=== PATIENT | male | born 1965 | race Caucasian/White ===

== ENCOUNTER 2020-07-09 13:25 | Outpatient (REF) | payer MEDICARE, OTHER, SELFPAY | END 2020-07-09 13:26 | disposition home or self-care (01) | LOC: HO.LAB 13:25 | PROVIDERS: Visit Provider Internal Medicine | DX: Z20.828 Contact with and (suspected) exposure to other viral communicable diseases (principal) | CPT/HCPCS: C9803; U0003 ==

== ENCOUNTER → 2020-10-12 13:37 | Outpatient (BNVA) | payer MEDICARE, SELFPAY | PROVIDERS: PCP Internal Medicine; Visit Provider Physician Assistant | CPT/HCPCS: Q3014 ==

== ENCOUNTER 2020-11-06 11:57 | Outpatient (REF) | payer MEDICARE, SELFPAY ==
[2020-11-06 13:01] LABS: Hemoglobin 13.7 g/dl (14.0-18.0)
[2020-11-06 13:04] LABS: Basophils Absolute Auto 0.1 X10*3/uL (0.0-0.2); Eosinophils Absolute Auto 0.1 X10*3/uL (0.0-0.4); Eosinophils Percent Auto 1.8 % (0-4); Hematocrit 40.8 % (42-52); Imm Gran Abs Auto 0.02 X10*3/uL (0.00-0.03); Imm Gran Pct Auto 0.3 % (0.0-0.4); Lymphocytes Absolute Auto 1.3 X10*3/uL (1.2-4.9); Lymphocytes Percent Auto 20.5 % (20-40); Mean Corpuscular HGB Conc 33.6 g/dl (31.0-36.0); Mean Corpuscular Hemoglobin 31.4 pg (27.0-33.0); Mean Corpuscular Volume 93.6 fL (80-98); Mean Platelet Volume 11.3 fL (9.4-12.4); Monocytes Absolute Auto 0.7 X10*3/uL (0.1-1.2); Monocytes Percent Auto 11.7 % (2-11); Neutrophils Percent Auto 64.7 % (45-73); Platelet Count 129 X10*3/uL (160-400); Red Blood Count 4.36 X10*6/uL (4.60-5.80); Red Cell Distribution Width 13.7 % (11.0-16.0); White Blood Count 6.2 X10*3/uL (4.8-10.8)
[2020-11-06 13:17] LABS: MANUAL DIFF FLAG NO
[2020-11-06 13:34] LABS: Alanine Aminotransferase 60 U/L (0-40); Albumin Level 3.8 g/dL (3.5-5.0); Alkaline Phosphatase 82 U/L (39-117); Anion Gap 14 (12-20); Aspartate Amino Transferase 59 U/L (5-37); Bilirubin Total 2.7 mg/dL (0.0-1.0); Blood Urea Nitrogen 9 mg/dL (9-16); Calcium 8.7 mg/dL (8.4-10.2); Carbon Dioxide 20 mmol/L (22-29); Chloride 106 mmol/L (96-108); Cholesterol 161 mg/dL; Estimated Glomerular Filt Rate > 60; Glucose Random 137 mg/dL (60-115); HDL Cholesterol 52 mg/dL; LDL Cholesterol Calculated 97 mg/dl; Potassium 3.8 mmol/L (3.3-5.1); Sodium 136 mmol/L (135-145); Total Protein 7.5 g/dL (6.5-8.0); Triglycerides 63 mg/dL
== END 2020-11-06 11:58 | disposition home or self-care (01) ==
LOC: HO.LAB 11:57
PROVIDERS: Absent Provider Nurse Practitioner Family; PCP Internal Medicine; Visit Provider Physician Assistant
DX: Z00.00 Encounter for general adult medical examination without abnormal findings (principal); R10.11 Right upper quadrant pain; R74.01 Elevation of levels of liver transaminase levels; M54.5 Low back pain
CPT/HCPCS: 36415; 80053; 80061; 84153; 85025

== ENCOUNTER 2020-11-11 12:35 | Outpatient (REF) | payer MEDICARE, SELFPAY ==
--- NOTE | ~2020-11-11 | US_ITS ---
EXAMINATION: US ABDOMEN COMPLETE CLINICAL INFORMATION: Unspecified cirrhosis of liver. COMPARISON: Ultrasound abdomen complete 04/19/2018. MRI abdomen 12/14/2016. TECHNIQUE: Real-time imaging of the abdominal viscera. Technically limited study secondary to body habitus. FINDINGS: PANCREAS: Obscured by bowel gas. ABDOMINAL AORTA: Proximal aorta obscured by bowel gas. Mid and distal aorta appear unremarkable. INFERIOR VENA CAVA: Unremarkable. LIVER: There is diffuse increased echogenicity. Nodular contour. No focal hepatic lesion. There is no intrahepatic biliary duct dilatation seen. Hepatofugal portal venous flow. GALLBLADDER: Gallstones present. No evidence of gallbladder wall thickening or pericholecystic fluid. COMMON BILE DUCT: Not visualized due to bowel gas. RIGHT KIDNEY: Normal. No hydronephrosis. No renal calculi or focal parenchymal lesions. The kidney measures 11.9 cm in maximum dimension. LEFT KIDNEY: Normal. No hydronephrosis. No renal calculi or focal parenchymal lesions. The kidney measures 13.9 cm in maximum dimension. SPLEEN: Enlarged The spleen measures 13.4 cm in maximum dimension. FREE FLUID: None. US/US abdomen complete IMPRESSION: 1. Findings consistent with cirrhosis. No focal lesion seen. No biliary duct dilatation. Redemonstrated is hepatofugal portal venous flow. 2. Cholelithiasis. No sonographic findings to suggest acute cholecystitis. 3. Splenomegaly.
== END 2020-11-11 12:36 | disposition home or self-care (01) ==
LOC: HO.US 12:35
PROVIDERS: Visit Provider Physician Assistant
DX: K74.60 Unspecified cirrhosis of liver (principal)
CPT/HCPCS: 76700

== ENCOUNTER → 2021-01-12 07:28 | Outpatient (BNVA) | payer MEDICARE, SELFPAY | PROVIDERS: Visit Provider Physician Assistant | CPT/HCPCS: Q3014 ==

== ENCOUNTER 2021-02-02 09:43 | Outpatient (REF) | payer MEDICARE, SELFPAY ==
[2021-02-02 10:53] LABS: MANUAL DIFF FLAG SCAN; Mean Corpuscular Hemoglobin 31.6 pg (27.0-33.0); PLT CLUMP 1; SCAN SMEAR FLAG 1
[2021-02-02 10:55] LABS: Basophils Absolute Auto 0.1 X10*3/uL (0.0-0.2); Basophils Percent Auto 1.5 % (0-2); Eosinophils Absolute Auto 0.2 X10*3/uL (0.0-0.4); Eosinophils Percent Auto 4.7 % (0-4); Hematocrit 39.7 % (42-52); Hemoglobin 13.4 g/dl (14.0-18.0); Lymphocytes Absolute Auto 1.2 X10*3/uL (1.2-4.9); Lymphocytes Percent Auto 34.7 % (20-40); Mean Corpuscular HGB Conc 33.8 g/dl (31.0-36.0); Mean Corpuscular Volume 93.6 fL (80-98); Mean Platelet Volume 11.1 fL (9.4-12.4); Monocytes Absolute Auto 0.5 X10*3/uL (0.1-1.2); Monocytes Percent Auto 14.5 % (2-11); Neutrophils Absolute Auto 1.5 X10*3/uL (2.0-8.3); Neutrophils Percent Auto 44.6 % (45-73); Platelet Count 106 X10*3/uL (160-400); Red Blood Count 4.24 X10*6/uL (4.60-5.80); Red Cell Distribution Width 13.1 % (11.0-16.0); White Blood Count 3.4 X10*3/uL (4.8-10.8)
[2021-02-02 11:08] LABS: SLIDE REVIEW VERIFIED
[2021-02-02 11:24] LABS: Alanine Aminotransferase 57 U/L (0-40); Albumin Level 3.6 g/dL (3.5-5.0); Alkaline Phosphatase 85 U/L (39-117); Anion Gap 11 (12-20); Aspartate Amino Transferase 64 U/L (5-37); Bilirubin Total 2.2 mg/dL (0.0-1.0); Blood Urea Nitrogen 8 mg/dL (9-16); Calcium 8.7 mg/dL (8.4-10.2); Carbon Dioxide 25 mmol/L (22-29); Chloride 107 mmol/L (96-108); Estimated Glomerular Filt Rate > 60; Glucose Fasting 99 mg/dL (60-99); Potassium 3.7 mmol/L (3.3-5.1); Sodium 139 mmol/L (135-145); Total Protein 6.7 g/dL (6.5-8.0)
== END 2021-02-02 09:44 | disposition home or self-care (01) ==
LOC: HO.LAB 09:43
PROVIDERS: Nurse Practitioner Family; PCP Internal Medicine; Visit Provider Internal Medicine
DX: R73.02 Impaired glucose tolerance (oral) (principal); M54.5 Low back pain
CPT/HCPCS: 36415; 80053; 85025

== ENCOUNTER 2021-02-04 13:11 | Day surgery (SDC) | payer MEDICARE, OTHER, SELFPAY ==
[2021-02-04 13:52] VITALS: BMI 32.0
--- NOTE | 2021-02-04 13:55 | MHC.SHP ---
Pre-Procedural Eval Section A Date of Service: 02/04/21 Section B Chief Complaint: reflux disease Details of Present Illness: hx of cirrhosis, variceal screening Relevant Family History (Specify if Yes): No Relevant Social History: None (ex heavy drinker) Present Medications: see Short Stay Collaborative assessment Medical History: Significant History (Acid reflux Cirrhosis of liver Esophageal varices Impaired glucose tolerance Left sided sciatica Lower back pain) History of Previous Operations: Relevant previous surgery/procedure and date(s) (History of esophagogastroduodenoscopy (EGD) History of hand surgery History of left knee surgery History of myringotomy History of right knee surgery Hx of colonoscopy) Allergies: Allergies Allergy/AdvReac Type Severity Reaction Status Date / Time Penicillins [PENICILLINS] Allergy Severe HIVES Verified 02/04/21 13:49 trazodone Allergy Unknown pruritus Verified 02/04/21 13:49 Review of Systems Sugical H&P ROS: Negative: Constitution, Cardiovascular, Respiratory, Neurological, Psychiatric, Hem-Onc, Allergic/Immunologic, Gastrointestinal, Genitourinary, Musculoskeletal, Integumentary, Endocrine and Eyes/Ears/Nose/Throat Exam Surgical H&P Exam: Normal: HEENT, Normal: Heart, Normal: Lungs, Normal: Extremities, Normal: Abdomen, Normal: Skin and Normal: Neurological Plan Diagnosis/Plan: Unchanged I have reviewed the history and physical and performed a pertinent physical examination on my patient. No changes have occurred unless specified.
[2021-02-04 14:00] VITALS: BP 119/63; PULSE 67; RESP 20; TEMP 36.9; O2SAT 97
--- NOTE | 2021-02-04 14:17 | HO.ANESPROP2 ---
[facility] Active Problems Active Problems: All Active Problems (Updated 01/12/21 @ 08:11 by Susana Grey PA-C) Acid reflux (Acute) Impaired glucose tolerance (Acute) Left sided sciatica (Acute) Cirrhosis of liver (Acute) Esophageal varices (Acute) Nausea & vomiting (Acute) Screening for colon cancer (Acute) Physical exam (Acute) Lower back pain (Acute) Past Medical History Medical History Acid reflux Cirrhosis of liver Esophageal varices Impaired glucose tolerance Left sided sciatica Lower back pain Physical exam Screening for colon cancer Family History Family History Father Cancer Mother Arthritis Sister In good health Daughter In good health Other History of hand surgery Surgical History Surgical History History of esophagogastroduodenoscopy (EGD) History of hand surgery History of left knee surgery History of myringotomy History of right knee surgery Hx of colonoscopy Social History Social History Household Members: Family Household Members Other:: step mother Alcohol intake: former Patient Tobacco Use Status: Never used Tobacco Use of substances other than those prescribed or required for medical reasons: No Are you DNR?: No Advance Directives: No Advance Directives Information Provided: Yes Current occupational status: disabled Meds Allergies Allergy/AdvReac Type Severity Reaction Status Date / Time Penicillins [PENICILLINS] Allergy Severe HIVES Verified 02/04/21 13:49 trazodone Allergy Unknown pruritus Verified 02/04/21 13:49 Home Medications Medication Instructions Recorded Confirmed Last Taken Type No Known Home Meds 01/12/21 Unknown History Exam Exam Date and Time: February 04, 2021 1417 Height,Weight and Vital Signs: Height 5 ft 9 in Weight 216 lb 12.8 oz Last Vital Signs Temp 98.4 F 02/04/21 14:00 Pulse 67 02/04/21 14:00 Resp 20 02/04/21 14:00 BP 119/63 02/04/21 14:00 Pulse Ox 97 02/04/21 14:00 Airway Mallampati Class: II TM Dist: >3cm Neck ROM: Full Loose/Missing/Broken Teeth: No Heart: RRR Assessment and Plan Assessment Anesthesia Assessment: Anesthesia Plan Discussed and Chart Reviewed Final Anesthetic Review NPO: Yes ASA Class: II Final Preanesthetic Review: No Changes in Pt Med Stat, Meds/Allgs Chart Reviewed, Consent Obtained/Reviewed and Anes Risks/Benef Reviewed Patient Risk: Low Procedure Risk: Low Anesthetic Plan Anesthetic Plan: MAC: Disposition: Standard PACU
--- NOTE | 2021-02-04 14:39 | PM.OP ---
Brief Operative Note Date of Service: 02/04/21 Pre-op diagnosis: GERD, hx of cirrhosis, variceal screening Post-op diagnosis: same Procedure: see op note Surgeon: Katya Stallings MD Anesthesia: MAC Was an Enlisted Advisor used for this Procedure?: No Estimated blood loss (mL): 0 Condition: stable Disposition: PACU
--- NOTE | 2021-02-04 14:39 | W.PM.OPN ---
Operative Note Operative Note Date of Service: 02/04/21 Narrative: Procedure Description: EGD FLEXIBLE TRANSORAL UPPER GASTROINTESTINAL ENDOSCOPY UPPER ENDOSCOPY Consent: Indications for the procedure and potential complications of bleeding, perforation, reaction to medications and missed diagnosis were discussed with the patient and informed consent was obtained. Instrument: Olympus GIF H 190 J mid size upper endoscope Monitoring: Vital signs and clinical assessment, continuous EKG monitoring, Pulse oximetry, Carbon Dioxide monitoring and blood pressure monitoring were done throughout the procedure. Procedure: The patient was placed in the left lateral decubitis position and pre-procedure medications were administered and a bite block was placed. The endoscope was inserted into the mouth and advanced under direct vision to the third part of duodenum. A careful inspection was made as the upper endoscope was withdrawn including a retroflexed examination of the proximal stomach; Findings and interventions are described below. Findings: Larynx:normal Esophagus: GE junction at 40 cm, diaphragm hiatus at 40 cm, suspected short segment barretts, bx taken. X1 flat varix column seen without any high risk stigmata Stomach: Patchy gastric erythema with small gastric ulcer 6-8 mm at pylorus biopsy taken. There was also an erosion close by. Biopsies were obtained. Grade 2 flap valve on retroflexed examination of the cardia. There appeared to be reduced gastric motility. Duodenum: Normal bulb and descending duodenum, Intervention: Biopsies as noted above Impression/Findings: possible barretts esophgeal varix, gastric ulcer and erosion PLAN: commence PPi if not taking if h pylori pos then treat rept EGD 2-3 yrs or earlier if clinically indicated
[2021-02-04 14:57] VITALS: BP 105/52; PULSE 68; RESP 18; TEMP 36.6; O2SAT 98
[2021-02-04 15:12] VITALS: BP 123/69; PULSE 63; RESP 16; TEMP 36.6; O2SAT 98
[2021-02-04 15:27] VITALS: BP 132/72; PULSE 67; RESP 16; TEMP 36.6; O2SAT 98
== END 2021-02-04 16:02 | disposition home or self-care (01) ==
PROVIDERS: PCP Internal Medicine; Visit Provider Internal Medicine Gastroenterology
PROC: 0DJ08ZZ Inspection of Upper Intestinal Tract, Via Natural or Artificial Opening Endoscopic (ICD-10-PCS; CPT 43235; principal; 2021-02-04 14:50)
DX: K21.9 Gastro-esophageal reflux disease without esophagitis (principal); K25.9 Gastric ulcer, unspecified as acute or chronic, without hemorrhage or perforation; I85.00 Esophageal varices without bleeding; K44.9 Diaphragmatic hernia without obstruction or gangrene; K74.60 Unspecified cirrhosis of liver; R73.02 Impaired glucose tolerance (oral); Z79.899 Other long term (current) drug therapy; Z88.0 Allergy status to penicillin; Z88.8 Allergy status to other drugs, medicaments and biological substances
CPT/HCPCS: 43239; 88305; 88342; J2405; J3010

== ENCOUNTER → 2021-02-09 12:50 | Outpatient (BNVA) | payer MEDICARE, SELFPAY | PROVIDERS: PCP Internal Medicine; Visit Provider Physician Assistant | DX: K74.60 Unspecified cirrhosis of liver (principal); I85.00 Esophageal varices without bleeding | CPT/HCPCS: Q3014 ==

== ENCOUNTER 2021-03-08 08:23 | Outpatient (REF) | payer MEDICARE, SELFPAY ==
--- NOTE | ~2021-03-08 | XR_ITS ---
EXAMINATION: XR FOOT, RIGHT CLINICAL INFORMATION: Localized swelling, mass, COMPARISON: Previous x-ray most recent April 2019 TECHNIQUE: AP, lateral, and oblique views of the right foot. FINDINGS: Bone alignment is normal. No fracture or dislocation is seen. There is severe arthritis at the first MTP joint with joint space narrowing and osteophyte formation. This is unchanged. The joint spaces are otherwise normal. There is soft tissue swelling adjacent to the medial first MTP joint. There are calcaneal spurs. XR/XR foot RT min 3V IMPRESSION: Severe arthritis at the first MTP joint.
== END 2021-03-08 08:24 | disposition home or self-care (01) ==
LOC: HO.US 08:23
PROVIDERS: PCP Internal Medicine; Visit Provider Physician Assistant
DX: K74.60 Unspecified cirrhosis of liver (principal)
CPT/HCPCS: 73630

== ENCOUNTER 2022-03-29 07:22 | Outpatient (REF) | payer OTHER, SELFPAY | END 2022-03-29 07:23 | disposition home or self-care (01) | LOC: HO.HOSX 07:22 | PROVIDERS: Visit Provider Physician Assistant | DX: Z13.89 Encounter for screening for other disorder (principal) ==

== ENCOUNTER 2023-01-18 11:48 | Outpatient (REF) | payer OTHER, SELFPAY ==
[2023-01-18 11:59] LABS: MANUAL DIFF FLAG NO
[2023-01-18 13:12] LABS: Basophils Absolute Auto 0.1 X10*3/uL (0.0-0.2); Basophils Percent Auto 1.9 % (0-2); Eosinophils Absolute Auto 0.2 X10*3/uL (0.0-0.4); Eosinophils Percent Auto 4.1 % (0-4); Hematocrit 41.5 % (42.0-52.0); Imm Gran Abs Auto 0.01 X10*3/uL (0.00-0.03); Imm Gran Pct Auto 0.3 % (0.0-0.4); Lymphocytes Absolute Auto 1.3 X10*3/uL (1.2-4.9); Lymphocytes Percent Auto 36.5 % (20-40); Mean Corpuscular HGB Conc 33.7 g/dl (31.0-36.0); Mean Corpuscular Hemoglobin 32.1 pg (27.0-33.0); Mean Corpuscular Volume 95.2 fL (80.0-98.0); Mean Platelet Volume 11.2 fL (9.4-12.4); Monocytes Absolute Auto 0.4 X10*3/uL (0.1-1.2); Monocytes Percent Auto 10.2 % (2-11); Neutrophils Absolute Auto 1.7 x10*3/uL (2.0-8.3); Platelet Count 114 X10*3/uL (160-400); Red Blood Count 4.36 X10*6/uL (4.60-5.80); Red Cell Distribution Width 13.3 % (11.0-16.0); White Blood Count 3.6 X10*3/uL (4.8-10.8)
[2023-01-18 13:40] LABS: Alanine Aminotransferase 38 U/L (0-40); Albumin Level 3.3 g/dL (3.5-5.0); Alkaline Phosphatase 112 U/L (39-117); Anion Gap 16 (12-20); Aspartate Amino Transferase 63 U/L (5-37); Blood Urea Nitrogen 7 mg/dL (9-16); Calcium 8.6 mg/dL (8.4-10.2); Carbon Dioxide 22 mmol/L (22-29); Chloride 106 mmol/L (96-108); Cholesterol 141 mg/dL; Estimated Glomerular Filt Rate > 60; Glucose Fasting 86 mg/dL (60-99); HDL Cholesterol 39 mg/dL; LDL Cholesterol Calculated 86 mg/dl; Potassium 3.9 mmol/L (3.3-5.1); Sodium 140 mmol/L (135-145); Total Protein 7.3 g/dL (6.5-8.0); Triglycerides 80 mg/dL
== END 2023-01-18 11:49 | disposition home or self-care (01) ==
LOC: HO.LAB 11:48
PROVIDERS: PCP Internal Medicine; Visit Provider Internal Medicine
DX: I85.00 Esophageal varices without bleeding (principal); D64.9 Anemia, unspecified; R73.02 Impaired glucose tolerance (oral); E78.5 Hyperlipidemia, unspecified
CPT/HCPCS: 36415; 80053; 80061; 85025

== ENCOUNTER → 2023-02-15 08:40 | Outpatient (BNV) | payer OTHER, SELFPAY | PROVIDERS: PCP Internal Medicine; Visit Provider Internal Medicine | DX: D46.A Refractory cytopenia with multilineage dysplasia (principal) | CPT/HCPCS: 99204 ==

== ENCOUNTER 2023-03-10 15:34 | Outpatient (AMB) | payer OTHER, SELFPAY ==
[2023-03-10 15:47] VITALS: BP 123/65; PULSE 97; BMI 40.2
--- NOTE | 2023-03-10 15:47 | A.OFFVIS_ITS ---
Intake Vital Signs 03/10/23 15:47 Height 5 ft 4 in Weight 234 lb BMI 40.2 BP 123/65 Blood Pressure Location Lt brachial Position Sitting Pulse 97 Intake Visit Reasons: Unspecified Cirrhosis of liver Intake Note: Patient presents to in office visit today for cirrhosis of liver. CC: Patient c/o LLQ abdominal pain, and some Oracle Database Administrator Required: No Accompanied by: Self / Same As Patient Allergies Penicillins [PENICILLINS] Allergy (Severe, Verified 03/10/23 15:51) HIVES trazodone Allergy (Intermediate, Verified 03/10/23 15:51) pruritus HPI HPI Comments History of Present Illness Details 57y.o M with PMH of cirrhosis with CSPH (varices, PHG on EGD 2020), obesity, osteoarthritis. Has had known etOH cirrhosis since at least 2012 when he presented with ascites. At that time was drinking a combination of bourbon and scotch at least half a bottle of each/day. Cut down on hard liquor but continues to drink beer - last drink was this morning. No current or previous hx of IVDU - hepatitis serology negative from last month. Fam hx pertinent for etOH use disorder in grandmother. No hx of iron overload or early pulm issues in family. Last EGD 2020 (Dr Stallings): Small esophageal varix, gastric varix. PHG Last colo 2016 (Dr Gunter): Fair prep. Recommendation was made for repeat in 5 years. Last abd imaging 11/2020: No focal liver lesion. Hepatofugal flow. No ascites. PFSH Medical History Acid reflux Cirrhosis of liver Esophageal varices Impaired glucose tolerance Left sided sciatica Lower back pain Mass of right foot Physical exam Screening for colon cancer Surgical History History of esophagogastroduodenoscopy (EGD) History of hand surgery History of left knee surgery History of myringotomy History of right knee surgery Hx of colonoscopy Family History Father Cancer Mother Arthritis Cancer Sister In good health Daughter In good health Family/Other Substance use disorder Other History of hand surgery Social History (Updated 02/15/23 @ 08:50 by Carol Freeman) Household Members: Family Household Members Other:: step mother Housing: House Alcohol intake: former Patient Tobacco Use Status: Never used Tobacco e-Cigarette/Vaping Use: Never Used Second Hand Smoke Exposure: No service: Yes ([employer]) Current occupational status: disabled Cognitive needs: No Hearing needs: No Vision needs: Yes Review of Systems Const All systems reviewed & are unremarkable except as noted in HPI and below Physical Exam Vital Signs: BMI result Body Mass Index 40.2 Gen Appear: NAD, with obesity HEENT: Mild scleral icterus, no bitemporal wasting noted Chest: CTA CVS: Regular S1/S2 no murmurs Abd: soft, nontender, nondistended, no shifting dullness to percussion, bowel sounds active Ext: No peripheral edema bilaterally Neuro: A/Ox3, no asterixis Assessment & Plan Assessment & Plan (1) Cirrhosis of liver: Code(s): K74.60 - Unspecified cirrhosis of liver Qualifiers: Hepatic cirrhosis type: alcoholic cirrhosis Ascites presence: without ascites Qualified Code(s): K70.30 - Alcoholic cirrhosis of liver without ascites (2) Esophageal varices: Code(s): I85.00 - Esophageal varices without bleeding Plan Likely from etOH use - continues to drink still. Will order work up to r/o other etiologies. Chronic hep negative. He is also overdue on US for HCC screening as well as EGD for variceal screening. EGD can be booked at the same time as colo. However this will be discussed in detail at next visit after reviewing his updated MELD labs and US Abd. Follow up in 6 weeks. Orders: Orders Comprehensive Met. Panel Today K74.60 - Unspecified cirrhosis of liver Ferritin Today K74.60 - Unspecified cirrhosis of liver IRON PROFILE Today K74.60 - Unspecified cirrhosis of liver Prothrombin Time INR Today K74.60 - Unspecified cirrhosis of liver Complete Blood Count no Diff Today K74.60 - Unspecified cirrhosis of liver Liver Kidney Microsomal Ab Today K74.60 - Unspecified cirrhosis of liver Phosphatidylethanol, Blood Today K74.60 - Unspecified cirrhosis of liver Ceruloplasmin Today K74.60 - Unspecified cirrhosis of liver Smooth Muscle Antibody Today K74.60 - Unspecified cirrhosis of liver US abdomen complete Today K74.60 - Unspecified cirrhosis of liver Quality Reporting (2019) Adult ([facility] 138/09/28/68) Smoking risk assessment performed?: Yes Patient Tobacco Use Status: Never used Tobacco Coding Level of Care Code Est Pt Level 5 (65464) Diagnoses Cirrhosis of liver K70.30 Hepatic cirrhosis type: alcoholic cirrhosis Ascites presence: without ascites Esophageal varices I85.00
== END 2023-03-10 16:10 | disposition home or self-care (01) ==
PROVIDERS: PCP Internal Medicine; Visit Provider Internal Medicine
DX: K70.30 Alcoholic cirrhosis of liver without ascites (principal); I85.00 Esophageal varices without bleeding
CPT/HCPCS: 99214

== ENCOUNTER 2023-03-10 15:34 | Outpatient (REF) | payer OTHER, SELFPAY ==
[2023-03-10 17:51] LABS: Prothrombin Time 11.8 SEC (11.1-13.3)
[2023-03-10 18:07] LABS: Hematocrit 37.7 % (42.0-52.0); Hemoglobin 12.7 g/dl (14.0-18.0); Mean Corpuscular HGB Conc 33.7 g/dl (31.0-36.0); Mean Corpuscular Hemoglobin 32.1 pg (27.0-33.0); Mean Corpuscular Volume 95.2 fL (80.0-98.0); Platelet Count 125 X10*3/uL (160-400); Red Blood Count 3.96 X10*6/uL (4.60-5.80); Red Cell Distribution Width 13.6 % (11.0-16.0); White Blood Count 4.3 X10*3/uL (4.8-10.8)
[2023-03-10 18:27] LABS: Alanine Aminotransferase 37 U/L (0-40); Albumin Level 3.3 g/dL (3.5-5.0); Alkaline Phosphatase 142 U/L (39-117); Anion Gap 14 (12-20); Aspartate Amino Transferase 53 U/L (5-37); Bilirubin Total 0.7 mg/dL (0.0-1.0); Blood Urea Nitrogen 9 mg/dL (9-16); Calcium 8.6 mg/dL (8.4-10.2); Carbon Dioxide 23 mmol/L (22-29); Chloride 111 mmol/L (96-108); Estimated Glomerular Filt Rate > 60; Glucose Random 119 mg/dL (60-115); Iron 88 mcg/dL (45-160); Percent Iron Saturation 38 % (15-50); Potassium 3.7 mmol/L (3.3-5.1); Sodium 144 mmol/L (135-145); Total Iron Binding Capacity 231 mcg/dL (228-428); Total Protein 6.8 g/dL (6.5-8.0); Unsaturated Iron Binding 143 ug/dL
[2023-03-10 18:41] LABS: Ferritin 578 ng/mL (20-250)
[2023-03-13 18:54] LABS: Ceruloplasmin 21 mg/dL (18-36)
[2023-03-16 14:08] LABS: Smooth Muscle Antibody <20 U (<20)
[2023-03-19 13:47] LABS: Liver Kidney Microsomal Ab <=20.0 U (<=20.0)
[2023-03-20 09:15] LABS: Phosphatidylethanol 16:0-18:2 >400 (H)
== END 2023-03-10 15:35 | disposition home or self-care (01) ==
LOC: HO.LAB 15:34
PROVIDERS: PCP Internal Medicine; Visit Provider Internal Medicine
DX: K70.30 Alcoholic cirrhosis of liver without ascites (principal); I85.00 Esophageal varices without bleeding; E66.9 Obesity, unspecified
CPT/HCPCS: 36415; 80053; 80321; 82390; 82728; 83540; 85027; 85610; 86015; 86376; 99212

== ENCOUNTER 2023-05-12 08:28 | Outpatient (REF) | payer OTHER, SELFPAY ==
[2023-05-12 17:40] LABS: Alanine Aminotransferase 40 U/L (0-40); Albumin Level 3.7 g/dL (3.5-5.0); Alkaline Phosphatase 102 U/L (39-117); Anion Gap 16 (12-20); Aspartate Amino Transferase 58 U/L (5-37); Bilirubin Total 1.2 mg/dL (0.0-1.0); Blood Urea Nitrogen 8 mg/dL (9-16); Calcium 8.7 mg/dL (8.4-10.2); Carbon Dioxide 22 mmol/L (22-29); Chloride 108 mmol/L (96-108); Cholesterol 163 mg/dL (<200); Estimated Glomerular Filt Rate > 60; Glucose Random 113 mg/dL (60-115); HDL Cholesterol 61 mg/dL (>40); LDL Cholesterol Calculated 88 mg/dL (<100); Potassium 3.6 mmol/L (3.3-5.1); Sodium 142 mmol/L (135-145); Total Protein 7.3 g/dL (6.5-8.0); Triglycerides 70 mg/dL (<150)
[2023-05-18 13:47] LABS: Phosphatidylethanol 16:0-18:1 >400 (H); Phosphatidylethanol 16:0-18:2 >400 (H)
== END 2023-05-12 08:29 | disposition home or self-care (01) ==
LOC: HO.US 08:28
PROVIDERS: PCP Internal Medicine; Visit Provider Internal Medicine
DX: K70.30 Alcoholic cirrhosis of liver without ascites (principal); I85.00 Esophageal varices without bleeding; F10.90 Alcohol use, unspecified, uncomplicated; Z79.899 Other long term (current) drug therapy
CPT/HCPCS: 36415; 76700; 80053; 80061; 80321; 83036; 85027; 85610; 99212

== ENCOUNTER 2023-05-12 15:12 | Outpatient (AMB) | payer OTHER, SELFPAY ==
--- NOTE | 2023-05-12 15:13 | MHC.OFFVIS ---
Intake Vital Signs 05/12/23 15:15 Height 5 ft 9 in Weight 238 lb 1.588 oz BMI 35.2 BP 158/80 H Blood Pressure Location Lt brachial Position Sitting Pulse 112 H Intake Visit Reasons: Follow up cirrhosis of liver Intake Note: Sujit presents in the office as a follow up for cirrhosis. CC: He states that he is saying after this morning with his ultrasound he is having pains in his stomach. Medical Unit Secretary Required: No Allergies Penicillins [PENICILLINS] Allergy (Severe, Verified 05/12/23 15:16) HIVES trazodone Allergy (Intermediate, Verified 05/12/23 15:16) pruritus HPI HPI Comments History of Present Illness Details 57y.o M with PMH of cirrhosis with CSPH (varices, PHG on EGD 2020), obesity, osteoarthritis who is here for follow up for etOH-related cirrhosis. 03/10/23: Has had known etOH cirrhosis since at least 2012 when he presented with ascites. At that time was drinking a combination of bourbon and scotch at least half a bottle of each/day. Cut down on hard liquor but continues to drink beer - last drink was this morning. No current or previous hx of IVDU - hepatitis serology negative from last month. Fam hx pertinent for etOH use disorder in grandmother. Father also had liver cirrhosis and had a transplant. Tells me his daughter has also picked up drinking and has been drinking heavily the last 10 years. No hx of iron overload or early pulm issues in family. Last EGD 2020 (Dr Stallings): Small esophageal varix, gastric varix. PHG Last colo 2016 (Dr Gunter): Fair prep. Recommendation was made for repeat in 5 years. Last abd imaging 11/2020: No focal liver lesion. Hepatofugal flow. No ascites. 05/12/23: Reports complete abstinence since last office visit i.e early Mar. Does not report any abd pain, N,V, abd distention. However does note that seems to be replacing craving for etOH with other foods and has put on 10 lbs since January. Results of blood work reviewed. Remaining work up for chronic liver disease negative. High ferritin likely from hepatic steatosis. US Abd completed this morning and results pending. [facility] Medical History Mass of right foot Acid reflux Impaired glucose tolerance Left sided sciatica Cirrhosis of liver Esophageal varices Screening for colon cancer Physical exam Lower back pain Surgical History History of esophagogastroduodenoscopy (EGD) Hx of colonoscopy History of right knee surgery History of myringotomy History of hand surgery History of left knee surgery Family History Father Cancer Mother Arthritis Cancer Sister In good health Daughter In good health Family/Other Substance use disorder Other History of hand surgery Social History Household Members: Family Household Members Other:: step mother Housing: House Alcohol intake: former Patient Tobacco Use Status: Never used Tobacco e-Cigarette/Vaping Use: Never Used Second Hand Smoke Exposure: No service: Yes ([employer]) Current occupational status: disabled Cognitive needs: No Hearing needs: No Vision needs: Yes Review of Systems Const All systems reviewed & are unremarkable except as noted in HPI and below Physical Exam Vital Signs: Last Vital Signs Pulse 112 H 05/12/23 15:15 BP 158/80 H 05/12/23 15:15 BMI result Body Mass Index 35.2 Gen Appear: NAD, with obesity HEENT: Mild scleral icterus, no bitemporal wasting noted Chest: CTA CVS: Regular S1/S2 no murmurs Abd: soft, nontender, nondistended, no shifting dullness to percussion, bowel sounds active Ext: No peripheral edema bilaterally Neuro: A/Ox3, no asterixis Assessment & Plan Assessment & Plan (1) Cirrhosis of liver: Code(s): K74.60 - Unspecified cirrhosis of liver Qualifiers: Ascites presence: without ascites Hepatic cirrhosis type: alcoholic cirrhosis Qualified Code(s): K70.30 - Alcoholic cirrhosis of liver without ascites (2) Esophageal varices: Code(s): I85.00 - Esophageal varices without bleeding (3) Alcohol use disorder: Code(s): F10.90 - Alcohol use, unspecified, uncomplicated Plan EtOH-related cirrhosis with CSPH MELD-Na 6 Congratulated on 2 months of sobriety from etOH and encouraged to continue the same. Has low MELD for now, and anticipate liver function may recuperate even further, to be assessed after 3-6 months of sobriety. Plan: - Cont abstinence from etOH - Follow US Abd results - EGD for variceal screening to be set up - Since also due for CRC screening, this will be set up at the same time as the EGD - No evidence of ascites or HE on assessment today - He was also counseled on other risk factors for progression of liver disease including noon-etOH fatty liver. Will screen for T2DM and HLD. - Follow up after scopes Orders: Orders Complete Blood Count no Diff Today K74.60 - Unspecified cirrhosis of liver Phosphatidylethanol, Blood Today K74.60 - Unspecified cirrhosis of liver Comprehensive Met. Panel Today K74.60 - Unspecified cirrhosis of liver Prothrombin Time INR Today K74.60 - Unspecified cirrhosis of liver Hemoglobin A1c Today K74.60 - Unspecified cirrhosis of liver Lipid Panel Today K74.60 - Unspecified cirrhosis of liver Medications: New peg 3350-electrolytes 236-22.74-6.74 -5.86 gram (Golytely) as per split prep instructions, until fecal effluent is clear 240 mL PO Q10M 4,000 mL 0RF colonoscopy Discontinued folic acid Discontinued Reason: Patient no longer taking 1 mg PO DAILY 90 tabs 3RF Quality Reporting (2019) Adult ([facility] 138/09/28/68) Smoking risk assessment performed?: Yes Patient Tobacco Use Status: Never used Tobacco Coding Level of Care Code Est Pt Level 4 (09283) Diagnoses Alcoholic cirrhosis of liver without ascites K70.30 Ascites presence: without ascites Hepatic cirrhosis type: alcoholic cirrhosis Esophageal varices I85.00 Alcohol use disorder F10.90
[2023-05-12 15:15] VITALS: BP 158/80; PULSE 112; BMI 35.2
== END 2023-05-12 15:59 | disposition home or self-care (01) ==
PROVIDERS: PCP Internal Medicine; Visit Provider Internal Medicine
DX: K70.30 Alcoholic cirrhosis of liver without ascites (principal); I85.00 Esophageal varices without bleeding; F10.90 Alcohol use, unspecified, uncomplicated
CPT/HCPCS: 99214

== ENCOUNTER 2023-06-21 10:59 | Day surgery (SDC) | payer OTHER, SELFPAY ==
--- NOTE | 2023-06-20 13:12 | P.CONAN_ITS ---
Documented by User: Jacqueline Olmedo NP 06/20/23 13:15 HPI - Anesthesia Eval Consult details Narrative: 58yo M for Upper Endoscopy and Colonoscopy ETOH Cirrhosis with varices PMFSH Active Problems Active Problems: All Active Problems (Updated 05/12/23 @ 16:05 by Shanelle Morgan MD) Alcohol use disorder (Acute) Bicytopenia (Acute) Eye discomfort (Acute) Bunion of right foot (Acute) Knee pain (Acute) Encounter for Medicare annual wellness exam (Acute) Mass of right foot (Acute) Acid reflux (Acute) Impaired glucose tolerance (Acute) Left sided sciatica (Acute) Cirrhosis of liver (Acute) Esophageal varices (Acute) Nausea & vomiting (Acute) Screening for colon cancer (Acute) Physical exam (Acute) Lower back pain (Acute) Past Medical History Medical History Mass of right foot Acid reflux Impaired glucose tolerance Left sided sciatica Cirrhosis of liver Esophageal varices Screening for colon cancer Physical exam Lower back pain Family History Family History Father Cancer Mother Arthritis Cancer Sister In good health Daughter In good health Family/Other Substance use disorder Other History of hand surgery Surgical History Surgical History History of esophagogastroduodenoscopy (EGD) Hx of colonoscopy History of right knee surgery History of myringotomy History of hand surgery History of left knee surgery Social History Social History Household Members: Family Household Members Other:: step mother Housing: House Alcohol intake: former Patient Tobacco Use Status: Never used Tobacco e-Cigarette/Vaping Use: Never Used Second Hand Smoke Exposure: No service: Yes ([employer] Current occupational status: disabled Cognitive needs: No Hearing needs: No Vision needs: Yes Meds Allergies Allergy/AdvReac Type Severity Reaction Status Date / Time Penicillins [PENICILLINS] Allergy Severe HIVES Verified 05/12/23 15:16 trazodone Allergy Intermediate pruritus Verified 05/12/23 15:16 Home Medications Medication Instructions Recorded Confirmed Last Taken Type neomycin 3.5 mg/g-polymyxin B 0 appl ophthalmic (eye) QID 02/15/23 02/15/23 Unknown History 10,000 unit/g-dexameth 0.1 % eye oint Exam Exam Date and Time: June 20, 2023 1312 Pertinent Lab Results Pertinent Lab Results: Laboratory Tests 05/12/23 16:14 WBC 4.0 L Hgb 13.4 L Hct 38.3 L Plt Count 120 L Sodium 142 Potassium 3.6 Chloride 108 Carbon Dioxide 22 BUN 8 L Creatinine 0.66 Narrative Narrative: US abdomen complete 05/12/23 IMPRESSION: 1. Cirrhotic-appearing liver with portal hypertension and hepatofugal flow in the portal vein with splenomegaly and splenorenal varices and splenorenal shunt. No ascites is visualized. 2. Cholelithiasis without cholecystitis. Assessment and Plan Assessment Anesthesia Assessment: Chart Reviewed Documented by User: Ulices Wagoner MD 06/21/23 16:49 HPI - Anesthesia Eval Consult details Narrative: 58yo M for Upper Endoscopy and Colonoscopy ETOH Cirrhosis with varices and portal hypertension [facility] Past Medical History Medical History Mass of right foot Acid reflux Impaired glucose tolerance Left sided sciatica Cirrhosis of liver Esophageal varices Screening for colon cancer Physical exam Lower back pain Family History Family History Father Cancer Mother Arthritis Cancer Sister In good health Daughter In good health Family/Other Substance use disorder Other History of hand surgery Family history of problems with anesthesia: No Surgical History Surgical History History of esophagogastroduodenoscopy (EGD) Hx of colonoscopy History of right knee surgery History of myringotomy History of hand surgery History of left knee surgery History of Problems with Anesthesia: No Social History Social History Household Members: Family Household Members Other:: step mother Housing: House Alcohol intake: former Patient Tobacco Use Status: Never used Tobacco e-Cigarette/Vaping Use: Never Used Second Hand Smoke Exposure: No service: Yes ([employer] Current occupational status: disabled Cognitive needs: No Hearing needs: No Vision needs: Yes Meds Allergies Allergy/AdvReac Type Severity Reaction Status Date / Time Penicillins [PENICILLINS] Allergy Severe HIVES Verified 05/12/23 15:16 trazodone Allergy Intermediate pruritus Verified 05/12/23 15:16 Home Medications Medication Instructions Recorded Confirmed Last Taken Type neomycin 3.5 mg/g-polymyxin B 0 appl ophthalmic (eye) QID 02/15/23 02/15/23 Unknown History 10,000 unit/g-dexameth 0.1 % eye oint Exam Airway Mallampati Class: IV Loose/Missing/Broken Teeth: Yes Assessment and Plan Assessment Anesthesia Assessment: Anesthesia Plan Discussed Final Anesthetic Review Family History of Problems with Anesthesia: No History of Problems with Anesthesia: No NPO: Yes ASA Class: IV Final Preanesthetic Review: Meds/Allgs Chart Reviewed, Consent Obtained/Reviewed and Anes Risks/Benef Reviewed Patient Risk: High Procedure Risk: Intermediate Anesthetic Plan Anesthetic Plan: MAC: and Agree w/ Assess. and Plan Disposition: Standard PACU
[2023-06-21 11:33] VITALS: BMI 34.0
[2023-06-21 11:46] VITALS: BP 136/63; PULSE 79; RESP 20; TEMP 36.8; O2SAT 97
--- NOTE | 2023-06-21 11:56 | MHC.SHP ---
Pre-Procedural Eval Section A Date of Service: 06/21/23 Section B Chief Complaint: colon and variceal screening Relevant Family History (Specify if Yes): No Relevant Social History: Alcohol Use Present Medications: see Short Stay Collaborative assessment Medical History: Significant History (Mass of right foot Acid reflux Impaired glucose tolerance Left sided sciatica Cirrhosis of liver Esophageal varices Screening for colon cancer Physical exam Lower back pain) History of Previous Operations: Relevant previous surgery/procedure and date(s) (History of esophagogastroduodenoscopy (EGD) Hx of colonoscopy History of right knee surgery History of myringotomy History of hand surgery History of left knee surgery) Allergies: Allergies Allergy/AdvReac Type Severity Reaction Status Date / Time Penicillins [PENICILLINS] Allergy Severe HIVES Verified 05/12/23 15:16 trazodone Allergy Intermediate pruritus Verified 05/12/23 15:16 Review of Systems Sugical H&P ROS: Negative: Constitution, Cardiovascular, Respiratory, Neurological, Psychiatric, Hem-Onc, Allergic/Immunologic, Gastrointestinal, Genitourinary, Musculoskeletal, Integumentary, Endocrine and Eyes/Ears/Nose/Throat Exam Surgical H&P Exam: Normal: HEENT, Normal: Heart, Normal: Lungs, Normal: Extremities, Normal: Abdomen, Normal: Skin and Normal: Neurological Plan Diagnosis/Plan: Unchanged I have reviewed the history and physical and performed a pertinent physical examination on my patient. No changes have occurred unless specified. Time Spent With Patient Time: Total time managing care of this patient today ____ minutes.
[2023-06-21] MEDS: Lactated Ringers 1,000 ML 100 ML IVCONT (12:02)
--- NOTE | 2023-06-21 12:59 | W.PM.OPN ---
Operative Note Operative Note Date of Service: 06/21/23 Narrative: Operative Information Procedure Description: EGD, Colonoscopy Indication: variceal screening and colon screening Anesthesia: MAC FLEXIBLE TRANSORAL UPPER GASTROINTESTINAL ENDOSCOPY AND COLONOSCOPY PROCEDURE NOTE UPPER ENDOSCOPY Consent: Indications for the procedure and potential complications of bleeding, perforation, reaction to medications and missed diagnosis were discussed with the patient and informed consent was obtained. Instrument: Olympus GIF H 190 J mid size upper endoscope Monitoring: Vital signs and clinical assessment, continuous EKG monitoring, Pulse oximetry, Carbon Dioxide monitoring and blood pressure monitoring were done throughout the procedure. Procedure: The patient was placed in the left lateral decubitis position and pre-procedure medications were administered and a bite block was placed. The endoscope was inserted into the mouth and advanced under direct vision to the third part of duodenum. A careful inspection was made as the upper endoscope was withdrawn including a retroflexed examination of the proximal stomach; Findings and interventions are described below. Findings: Larynx:normal Esophagus: GE junction at 43 cm, diaphragm hiatus at 43 cm, x1 varix noted without any high risk stigmata, grade I, collapsed with air. There was one small island of salmon pink appearing mucosa which was not biopsied as it was close to the varix Stomach: Normal mucosa. Grade 2 flap valve on retroflexed examination of the cardia. No gastric varices seen Duodenum: Normal bulb and descending duodenum, Intervention: None COLONOSCOPY Instrument: Olympus variable stiffness pediatric scope 190L Colonoscopy Monitoring: Vital signs and clinical assessment, continuous EKG monitoring, Pulse oximetry, Carbon Dioxide monitoring and blood pressure monitoring were done throughout the procedure. Colon withdrawal time was 6 minutes. Procedure: The patient was placed in the left lateral decubitis position and pre-procedure medications were administered. After a digital rectal examination of the ano-rectum, the video colonoscope was inserted into the rectum and advanced through the colon to the cecum/TI. The colonoscope was slowly withdrawn in a retrograde panoramic fashion and the colon mucosa was carefully examined including a retroflexed view of the rectum. Findings and interventions are described below. Procedure Difficulty:easy Findings: Terminal Ileum-normal Cecum:normal Ascending Colon: normal Transverse Colon -normal Descending Colon:normal Sigmoid Colon: normal Rectum: Retroflexion with medium sized internal hemorrhoids, grade I Anorectum - normal Colon preparation: Scott Bowel Preparation Scale Right colon; 2 Transverse colon: 2 Left colon; 2 (0 = Unprepared colon segment with mucosa not seen due to solid stool that cannot be cleared. 1 = Portion of mucosa of the colon segment seen, but other areas of the colon segment not well seen due to staining, residual stool and/or opaque liquid. 2 = Minor amount of residual staining, small fragments of stool and/or opaque liquid, but mucosa of colon segment seen well. 3 = Entire mucosa of colon segment seen well with no residual staining, small fragments of stool or opaque liquid) Impression and Post Procedure Diagnosis: Endoscopy Findings: varix, possible barretts Colonoscopy Findings: internal hemorrhoids Plan: Await Pathology results Repeat Colonoscopy in 10 years or earlier if clinically indicated High fiber diet leaflet avoid straining at stool, epsom salts and sitz bath, anusol supps or cream repeat EGD in 1-2 yrs, can do WATS next time, in meantime will send him low dose PPI Above findings were reviewed with the patient and relevant handouts were provided if indicated.
[2023-06-21 13:55] VITALS: BP 113/77; PULSE 83; RESP 15; TEMP 36.6; O2SAT 96
[2023-06-21 14:10] VITALS: BP 120/78; PULSE 88; RESP 18; TEMP 36.4; O2SAT 100
== END 2023-06-21 14:40 | disposition home or self-care (01) ==
PROVIDERS: PCP Internal Medicine; Visit Provider Internal Medicine Gastroenterology
PROC: (CPT 43235; principal; 2023-06-21 12:30)
DX: K70.30 Alcoholic cirrhosis of liver without ascites (principal); I85.10 Secondary esophageal varices without bleeding; Z12.11 Encounter for screening for malignant neoplasm of colon; K64.0 First degree hemorrhoids; D64.9 Anemia, unspecified; E66.9 Obesity, unspecified; Z68.35 Body mass index [BMI] 35.0-35.9, adult; K21.9 Gastro-esophageal reflux disease without esophagitis
CPT/HCPCS: 43235; G0121; J2704; J3010

== ENCOUNTER → 2023-06-21 10:59 | Outpatient (BNV) | payer OTHER, SELFPAY | PROVIDERS: PCP Internal Medicine; Visit Provider Internal Medicine Gastroenterology | DX: Z12.11 Encounter for screening for malignant neoplasm of colon (principal); Z13.810 Encounter for screening for upper gastrointestinal disorder; K22.70 Barrett's esophagus without dysplasia; K64.8 Other hemorrhoids | CPT/HCPCS: 43235; G0121 ==

== ENCOUNTER 2023-11-16 07:30 | Outpatient (REF) | payer OTHER, SELFPAY ==
--- NOTE | ~2023-11-16 | US_ITS ---
EXAMINATION: US ABDOMEN COMPLETE CLINICAL INFORMATION: Alcoholic cirrhosis of liver without ascites. COMPARISON: Ultrasound abdomen complete 05/12/2023 and 11/11/2020. MRI abdomen 12/14/2016. TECHNIQUE: Real-time imaging of the abdominal viscera. Technically limited study secondary to body habitus. FINDINGS: PANCREAS: Not well visualized due to bowel gas ABDOMINAL AORTA: The proximal aorta is not well-visualized due to bowel gas. The mid and distal abdominal aorta is normal in caliber. INFERIOR VENA CAVA: Visualized portions are normal. LIVER: Cirrhotic appearing liver with heterogeneous increased echotexture. No focal hepatic lesion. There is no intrahepatic biliary duct dilatation seen. Previously identified cyst in the left lobe of the liver not appreciated. There is hepatofugal flow in the main portal vein. GALLBLADDER: Not well visualized. COMMON BILE DUCT: Not visualized. RIGHT KIDNEY: Normal. No hydronephrosis. No renal calculi or focal parenchymal lesions. The kidney measures 11.5 cm in maximum dimension. LEFT KIDNEY: Normal. No hydronephrosis. No renal calculi or focal parenchymal lesions. The kidney measures 12.6 cm in maximum dimension. SPLEEN: Upper normal size. The spleen measures 12.5 cm in maximum dimension. FREE FLUID: None. US/US abdomen complete IMPRESSION: Limited exam. Cirrhotic appearing liver. No focal liver lesion. No ascites. Hepatofugal flow in the main portal vein. Pancreas, gallbladder, common bile duct and upper abdominal aorta not well-visualized.
== END 2023-11-16 07:31 | disposition home or self-care (01) ==
LOC: HO.US 07:30
PROVIDERS: PCP Internal Medicine; Visit Provider Internal Medicine
DX: K70.30 Alcoholic cirrhosis of liver without ascites (principal)
CPT/HCPCS: 76700

== ENCOUNTER 2024-01-10 15:22 | Outpatient (REF) | payer OTHER, SELFPAY ==
[2024-01-10 17:23] LABS: Hematocrit 37.2 % (42.0-52.0); Hemoglobin 12.7 g/dl (14.0-18.0); Mean Corpuscular HGB Conc 34.1 g/dl (31.0-36.0); Mean Corpuscular Hemoglobin 32.4 pg (27.0-33.0); Mean Corpuscular Volume 94.9 fL (80.0-98.0); Mean Platelet Volume 11.1 fL (9.4-12.4); Platelet Count 132 X10*3/uL (160-400); Red Blood Count 3.92 X10*6/uL (4.60-5.80); Red Cell Distribution Width 13.3 % (11.0-16.0); White Blood Count 3.3 X10*3/uL (4.8-10.8)
[2024-01-10 17:28] LABS: INTERNATIONAL NORM RATIO 1.1 (0.9-1.1)
[2024-01-10 18:09] LABS: Alanine Aminotransferase 47 U/L (0-40); Albumin Level 3.6 g/dL (3.5-5.0); Alkaline Phosphatase 92 U/L (39-117); Anion Gap 11 (12-20); Aspartate Amino Transferase 62 U/L (5-37); Blood Urea Nitrogen 7 mg/dL (9-16); Calcium 8.7 mg/dL (8.4-10.2); Carbon Dioxide 25 mmol/L (22-29); Chloride 112 mmol/L (96-108); Estimated Glomerular Filt Rate > 60; Glucose Random 143 mg/dL (60-115); Potassium 3.5 mmol/L (3.3-5.1); Sodium 144 mmol/L (135-145); Total Protein 6.9 g/dL (6.5-8.0)
[2024-01-10 18:20] LABS: Ferritin 639 ng/mL (20-250)
[2024-01-19 12:11] LABS: Phosphatidylethanol 16:0-18:1 >400 (H); Phosphatidylethanol 16:0-18:2 >400 (H)
== END 2024-01-10 15:23 | disposition home or self-care (01) ==
LOC: HO.LAB 15:22
PROVIDERS: PCP Internal Medicine; Visit Provider Internal Medicine
DX: K70.30 Alcoholic cirrhosis of liver without ascites (principal); F10.90 Alcohol use, unspecified, uncomplicated; I85.00 Esophageal varices without bleeding; R10.9 Unspecified abdominal pain
CPT/HCPCS: 36415; 80053; 80321; 82728; 85027; 85610; 99212

== ENCOUNTER 2024-01-10 15:22 | Outpatient (AMB) | payer OTHER, SELFPAY ==
--- NOTE | 2024-01-10 15:25 | A.OFFVIS_ITS ---
Vital Signs 01/10/24 15:26 Height 5 ft 9 in Weight 231 lb 7.766 oz BMI 34.2 BP 123/63 Blood Pressure Location Lt brachial Position Sitting Pulse 104 H Intake Visit Reasons: f/u US Intake Note: Sujit presents in the office as a follow up ultrasound. CC: Here today as a follow up - states every once in a while he gets discomfort in the lower abdomen. He does not have diarrhea but he has fairly normal bowels. States that he has cut down on fatty foods and has been trying to eat a lot better. 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 03/10/23: Has had known etOH cirrhosis since at least 2012 when he presented with ascites. At that time was drinking a combination of bourbon and scotch at least half a bottle of each/day. Cut down on hard liquor but continues to drink beer - last drink was this morning. No current or previous hx of IVDU - hepatitis serology negative from last month. Fam hx pertinent for etOH use disorder in grandmother. Father also had liver cirrhosis and had a transplant. Tells me his daughter has also picked up drinking and has been drinking heavily the last 10 years. No hx of iron overload or early pulm issues in family. Last EGD 2020 (Dr Stallings): Small esophageal varix, gastric varix. PHG Last colo 2016 (Dr Gunter): Fair prep. Recommendation was made for repeat in 5 years. Last abd imaging 11/2020: No focal liver lesion. Hepatofugal flow. No ascites. 05/12/23: Reports complete abstinence since last office visit i.e early Mar. Does not report any abd pain, N,V, abd distention. However does note that seems to be replacing craving for etOH with other foods and has put on 10 lbs since January. Results of blood work reviewed. Remaining work up for chronic liver disease negative. High ferritin likely from hepatic steatosis. US Abd completed this morning and results pending. 06/21/23: EGD/colo: Larynx:normal Esophagus: GE junction at 43 cm, diaphragm hiatus at 43 cm, x1 varix noted without any high risk stigmata, grade I, collapsed with air. There was one small island of salmon pink appearing mucosa which was not biopsied as it was close to the varix Stomach: Normal mucosa. Grade 2 flap valve on retroflexed examination of the cardia. No gastric varices seen Duodenum: Normal bulb and descending duodenum, Normal colon. Hemorrhoids. BBPS: 01/13. 01/10/24: Here for follow up. Reports has been abstinent from etOH x 6 months. Has also been working on his diet and lifestyle overall. Weight curve has stabilised. No updated labs available. US Abd 11/16/23: Limited exam. Cirrhotic appearing liver. No focal liver lesion. No ascites. Hepatofugal flow in the main portal vein. Pancreas, gallbladder, common bile duct and upper abdominal aorta not well-visualized. [facility] Medical History Mass of right foot Acid reflux Impaired glucose tolerance Left sided sciatica Cirrhosis of liver Esophageal varices Screening for colon cancer Physical exam Lower back pain Surgical History History of esophagogastroduodenoscopy (EGD) Hx of colonoscopy History of right knee surgery History of myringotomy History of hand surgery History of left knee surgery Family History Father Cancer Mother Arthritis Cancer Sister In good health Daughter In good health Family/Other Substance use disorder Other History of hand surgery Social History (Updated 01/29/24 @ 09:59 by Allison Reece MD) Household Members: Family Household Members Other:: step mother Housing: House Alcohol intake: current Alcohol intake frequency: a few times a month Alcohol type: beer Patient Tobacco Use Status: Never used Tobacco e-Cigarette/Vaping Use: Never Used Second Hand Smoke Exposure: No service: Yes ([employer]) Current occupational status: disabled Cognitive needs: No Hearing needs: No Vision needs: Yes Review of Systems Const All systems reviewed & are unremarkable except as noted in HPI and below Physical Exam Vital Signs: Last Vital Signs Pulse 104 H 01/10/24 15:26 BP 123/63 01/10/24 15:26 BMI result Body Mass Index 34.2 No apparent distress Nonicteric Abdomen soft, nondistended Alert and oriented x3, normal gait Quality Reporting (2019) Adult ([facility] 138/2//69) Smoking risk assessment performed?: Yes Patient Tobacco Use Status: Never used Tobacco Results Reviewed Results Reviewed: US 11/16/23: Limited exam. Cirrhotic appearing liver. No focal liver lesion. No ascites. Hepatofugal flow in the main portal vein. Pancreas, gallbladder, common bile duct and upper abdominal aorta not well-visualized. Assessment & Plan Assessment & Plan (1) Cirrhosis of liver: Code(s): K74.60 - Unspecified cirrhosis of liver Category: Medical Qualifiers: Ascites presence: without ascites Hepatic cirrhosis type: alcoholic cirrhosis Qualified Code(s): K70.30 - Alcoholic cirrhosis of liver without ascites (2) Esophageal varices: Code(s): I85.00 - Esophageal varices without bleeding Category: Medical (3) Alcohol use disorder: Code(s): F10.90 - Alcohol use, unspecified, uncomplicated Category: Medical Plan EtOH-related cirrhosis with [facility] MELD-Na 6 Congratulated on 6 months of sobriety from etOH and encouraged to continue the same. Had low MELD in May 2023 and suspect liver function may have recuperated even further with 6 months of sobriety. Will obtain updated MELD labs. Plan: - Cont abstinence from etOH - No evidence of ascites or HE on assessment today - Next EGD due in 2025 if remains abstinence from etOH, otherwise in a year. No indication for NSBB at this time. - Next US Abd due in May 2024. - MELD labs to be done today. Will also check PETH. Follow up in 6 months for compensated etOH related cirrhosis Orders: Orders Complete Blood Count no Diff 01/10/24 F10.90 - Alcohol use, unspecified, uncomplicated, K70.30 - Alcoholic cirrhosis of liver without ascites Comprehensive Met. Panel 01/10/24 F10.90 - Alcohol use, unspecified, uncomplicated, K70.30 - Alcoholic cirrhosis of liver without ascites Prothrombin Time INR 01/10/24 F10.90 - Alcohol use, unspecified, uncomplicated, K70.30 - Alcoholic cirrhosis of liver without ascites Phosphatidylethanol, Blood 01/10/24 F10.90 - Alcohol use, unspecified, uncomplicated, K70.30 - Alcoholic cirrhosis of liver without ascites Ferritin 01/10/24 F10.90 - Alcohol use, unspecified, uncomplicated, K70.30 - Alcoholic cirrhosis of liver without ascites Coding Level of Care Code Est Pt Level 4 (02013) Diagnoses Alcoholic cirrhosis of liver without ascites K70.30 Ascites presence: without ascites Hepatic cirrhosis type: alcoholic cirrhosis Esophageal varices I85.00 Alcohol use disorder F10.90
[2024-01-10 15:26] VITALS: BP 123/63; PULSE 104; BMI 34.2
== END 2024-01-10 16:15 | disposition home or self-care (01) ==
PROVIDERS: PCP Internal Medicine; Visit Provider Internal Medicine
DX: K70.30 Alcoholic cirrhosis of liver without ascites (principal); I85.00 Esophageal varices without bleeding; F10.90 Alcohol use, unspecified, uncomplicated
CPT/HCPCS: 99214

== ENCOUNTER 2024-01-29 09:09 | Outpatient (AMB) | payer OTHER, SELFPAY ==
--- NOTE | 2024-01-29 09:29 | A.OFFPC_ITS ---
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 Colliery Required: No Accompanied by: Self / Same As Patient Allergies Penicillins [PENICILLINS] Allergy (Severe, Verified 01/29/24 09:47) HIVES trazodone Allergy (Intermediate, Verified 01/29/24 09:47) pruritus Medication List - Last Reconciled 01/29/24 by Allison Reece MD pantoprazole 20 mg PO DAILY Tobacco use date assessed: 01/29/24 Dental Screening Dental Screen Date: 01/29/24 Did you have a dental visit in the last 12 months?: No Did you have a dental problem in the last 6 months where you did not have access to dental care?: No Was dental information given to patient?: Patient has dentist HPI HPI Comments History of Present Illness Details This is a 60-year-old male with alcoholic cirrhosis and esophageal varices that comes for his physical exam. Last endoscopy and colonoscopy was 06/26/2023. Next endoscopy will be in 1-2 years. Next colonoscopy will be in 10 years. He complains of right foot bunion and would like a referral to Podiatry. He also complains of low back pain and would like pain management for possible local injections. No chest pain or shortness on breath. [facility] Medical History Mass of right foot Acid reflux Impaired glucose tolerance Left sided sciatica Cirrhosis of liver Esophageal varices Screening for colon cancer Physical exam Lower back pain Surgical History History of esophagogastroduodenoscopy (EGD) Hx of colonoscopy History of right knee surgery History of myringotomy History of hand surgery History of left knee surgery Family History Father Cancer Mother Arthritis Cancer Sister In good health Daughter In good health Family/Other Substance use disorder Other History of hand surgery Social History (Updated 01/29/24 @ 09:59 by Allison Reece MD) Household Members: Family Household Members Other:: step mother Housing: House Alcohol intake: current Alcohol intake frequency: a few times a month Alcohol type: beer Patient Tobacco Use Status: Never used Tobacco e-Cigarette/Vaping Use: Never Used Second Hand Smoke Exposure: No service: Yes ([employer]) Current occupational status: disabled Cognitive needs: No Hearing needs: No Vision needs: Yes Questionnaire PHQ-9 Over the last 2 weeks, how often have you been bothered by any of the following problems? 1. Little interest or pleasure in doing things: not at all 2. Feeling down, depressed, or hopeless: not at all 3. Trouble falling or staying asleep, or sleeping too much: not at all 4. Feeling tired or having little energy: not at all 5. Poor appetite or overeating: not at all 6. Feeling bad about yourself - or that you are a failure or have let yourself or your family down: not at all 7. Trouble concentrating on things, such as reading the newspaper or watching television: not at all 8. Moving or speaking so slowly that other people could have noticed. Or the opposite - being so fidgety or restless that you have been moving around a lot more than usual: not at all 9. Thoughts that you would be better off or of hurting yourself in some way: not at all Total score: 0 Depression Screening Interpretation: Negative Depression Screening Done: Yes 29336 - PHQ-9 Billing: Yes Source: Developed by Drs. Bryson Sagastume, Katelyn Machado, Adrian Escalera and colleagues, with an educational marcy from [employer]. Thrive Questionnaire Date Thrive assessed: 01/29/24 I am a: Patient What is your living situation today?: I have a steady place to live Within the past 12 months, did the food you bought not last and you didn't have the money to get more?: Never true Within the past 12 months, did you worry whether your food would run out before you got money to buy more?: Never true Do you have trouble paying for medicines?: No Do you have trouble getting transportation to medical appointments?: No Do you have trouble paying your heating and electricity bill?: No Do you have trouble taking care of your child, family member or friend?: No Do you have trouble with day-to-day activities such as bathing, preparing meals, shopping, managing finances, etc.?: No Are you currently unemployed and looking for a job?: No Are you interested in more education?: No Please select the resources that you would like help with: None Currently or been in a relationship where the following occur: no concerns reported THRIVE Score: 0 AUDIT C Alcohol Use Questionnaire (AUDIT-C) 1. How often do you have a drink containing alcohol?: 2-4 times a month 2. How many drinks containing alcohol do you have on a typical day when you are drinking?: 1 or 2 Total Score: 2 MARCELA-7 AMB Questionnaire MARCELA-7 Date MARCELA - 7 assessed: 01/29/24 Feeling nervous, anxious, or on edge: 0 = Not at all Not being able to stop or control worryin = Not at all Worrying too much about different things: 0 = Not at all Trouble relaxin = Not at all Being so restless that it is hard to sit still: 0 = Not at all Becoming easily annoyed or irritable: 0 = Not at all Feeling afraid as if something awful might happen: 0 = Not at all Total MARCELA-7 score (0-4 normal; 5-9 mild; 10-14 moderate; 15-21 severe): 0 Source: Developed by Drs. Bryson Sagastume, Katelyn Machado, Adrian Escalera and colleagues, with an educational marcy from [employer]. MARCELA-7 Assessment Billing MARCELA-7 Assessment Tool: MARCELA-7 Assessment 61018 Review of Systems Const All systems reviewed & are unremarkable except as noted in HPI and below Card Denies chest pain at rest, Denies chest pain with activity, Denies edema, Denies irregular heart rhythm, Denies claudication, Denies dyspnea, Denies dyspnea on exertion, Denies orthopnea, Denies paroxysmal nocturnal dyspnea and Denies slow heart rate Resp Denies cough, Denies dyspnea and Denies dyspnea on exertion Physical exam (Primary Care) Vital Signs: Last Vital Signs BP 122/70 01/29/24 09:32 BMI result Body Mass Index 34.0 BMI Assessment/Plan discussion: High BMI High, discussed plan: lifestyle, weight reduction, dietary, physical activity and alcohol moderation Tobacco/Smoking Status: Tobacco use Status Tobacco use date assessed 01/29/24 01/29/24 09:34 Patient Tobacco Use Status Never used Tobacco 01/29/24 09:59 e-Cigarette/Vaping Use Never Used 01/29/24 09:59 PHQ-9: PHQ-9 Score PHQ-9: Total score 0 01/29/24 09:50 Depression Screening Interpretation: Negative Thrive Assessment: Date of Thrive Assessment Date Thrive assessed 01/29/24 01/29/24 09:34 Currently or been in a relationship where the following occur: no concerns reported Const Orientation/consciousness: patient oriented x3 HENMT Head: Yes normal to inspection, Yes normocephalic and Yes atraumatic Ears: external ears normal Eyes General: appearance normal, both eyes and all related structures Eyelids: Yes eyelids normal Conjunctivae: conjunctivae normal Neck Neck: Yes normal visual inspection and Yes supple Resp Effort & Inspection: normal respiratory effort Auscultation: clear to auscultation bilaterally Cardio Jugular venous distension: no JVD Rate: regular rate Rhythm: regular rhythm Heart sounds: S1 normal heart sound present and S2 normal heart sound present GI Inspection: Yes normal to inspection Palpation (GI): Soft to palpation and nontender Auscultation: normal bowel sounds Skin General skin exam: no rashes or lesions noted Neuro General: patient oriented x3 and no focal motor deficits Extrem Other: right foot bunion General: Yes full ROM Psych Appearance: grossly normal Assessment and Plan Assessment & Plan (1) Physical exam: Code(s): Z00.00 - Encounter for general adult medical examination without abnormal findings Plan: Repeat in a year. (2) Left sided sciatica: Code(s): M54.32 - Sciatica, left side Plan: Referred to pain management. (3) Cirrhosis of liver: Code(s): K74.60 - Unspecified cirrhosis of liver Qualifiers: Hepatic cirrhosis type: alcoholic cirrhosis Ascites presence: without ascites Qualified Code(s): K70.30 - Alcoholic cirrhosis of liver without ascites Plan: Follow-up with Gastroenterology. (4) Esophageal varices: Code(s): I85.00 - Esophageal varices without bleeding Plan: Follow-up with Gastroenterology. Repeat endoscopy in 1-2 years. (5) Bunion of right foot: Code(s): M21.611 - Bunion of right foot Plan: Referred to Podiatry. Orders: Orders Uric Acid Today M10.9 - Gout, unspecified Referrals Pain Management Referral M54.32 - Sciatica, left side Podiatry Referral M21.611 - Bunion of right foot Coding Level of Care Code Est Pt Level 3 (58847) Est Pt Prev Care 40-64y(72459) Diagnoses Physical exam Z00.00 Left sided sciatica M54.32 Alcoholic cirrhosis of liver without ascites K70.30 Hepatic cirrhosis type: alcoholic cirrhosis Ascites presence: without ascites Esophageal varices I85.00 Bunion of right foot M21.611 Additional Codes MARCELA-7 Assessment Billing - MARCELA-7 Assessment Tool: MARCELA-7 Assessment 12420 ([id number]) Time Spent (min) 35
[2024-01-29 09:32] VITALS: BP 122/70; BMI 34.0
== END 2024-01-29 10:04 | disposition home or self-care (01) ==
PROVIDERS: PCP Internal Medicine; Visit Provider Internal Medicine
DX: Z00.00 Encounter for general adult medical examination without abnormal findings (principal); M54.32 Sciatica, left side; K70.30 Alcoholic cirrhosis of liver without ascites; I85.00 Esophageal varices without bleeding; M21.611 Bunion of right foot
CPT/HCPCS: 99396

== ENCOUNTER 2024-01-29 10:11 | Outpatient (REF) | payer OTHER, SELFPAY ==
[2024-01-29 10:56] LABS: MANUAL DIFF FLAG NO
[2024-01-29 12:42] LABS: Basophils Absolute Auto 0.1 X10*3/uL (0.0-0.2); Basophils Percent Auto 1.3 % (0-2); Eosinophils Absolute Auto 0.2 X10*3/uL (0.0-0.4); Eosinophils Percent Auto 3.8 % (0-4); Hematocrit 41.1 % (42.0-52.0); Hemoglobin 14.4 g/dl (14.0-18.0); Imm Gran Abs Auto 0.01 X10*3/uL (0.00-0.03); Imm Gran Pct Auto 0.3 % (0.0-0.4); Lymphocytes Absolute Auto 1.1 X10*3/uL (1.2-4.9); Mean Corpuscular Hemoglobin 32.3 pg (27.0-33.0); Mean Corpuscular Volume 92.2 fL (80.0-98.0); Mean Platelet Volume 11.3 fL (9.4-12.4); Monocytes Absolute Auto 0.5 X10*3/uL (0.1-1.2); Monocytes Percent Auto 13.5 % (2-11); Neutrophils Absolute Auto 2.2 x10*3/uL (2.0-8.3); Neutrophils Percent Auto 54.1 % (45-73); Platelet Count 102 X10*3/uL (160-400); Red Blood Count 4.46 X10*6/uL (4.60-5.80)
[2024-01-29 13:31] LABS: Uric Acid 5.9 mg/dL (3.4-7.0)
== END 2024-01-29 10:12 | disposition home or self-care (01) ==
LOC: HO.LAB 10:11
PROVIDERS: PCP Internal Medicine; Visit Provider Internal Medicine
DX: D64.9 Anemia, unspecified (principal); M10.9 Gout, unspecified
CPT/HCPCS: 36415; 84550; 85025

== ENCOUNTER 2024-02-12 09:36 | Outpatient (AMB) | payer OTHER, SELFPAY ==
--- NOTE | 2024-02-12 09:36 | A.OFFVIS_ITS ---
Vital Signs 02/12/24 09:38 Height 5 ft 9 in Weight 230 lb BMI 34.0 BP 128/78 Blood Pressure Location Lt brachial Position Sitting Respiration 14 Pulse 88 Pulse Source Pulse Oximeter Pulse Oximetry (%) 98 Oxygen Delivery Method Room Air Intake Visit Reasons: Left Sided Sciatica Allergies Penicillins [PENICILLINS] Allergy (Severe, Verified 02/12/24 09:38) HIVES trazodone Allergy (Intermediate, Verified 02/12/24 09:38) pruritus Medication List - Last Reconciled 02/12/24 by Mell Allred LPN pantoprazole 20 mg PO DAILY HPI HPI Left Sided Sciatica: Details: 58-year-old male who presents today to the office for an evaluation of left sided sciatica. Patient has had a longstanding history of low back pain with sciatica symptoms. His 1st MRI was done in 2005 that showed multilevel mild degeneration with some disc bulging and nerve root impingement. He subsequently underwent a left L5 TFESI at [facility] in 2020 that provided good relief for more than 24 months. His pain then started getting worse and over the past few months it has progressed to a debilitating state. He does not recall a recent MRI of his lower back. At this time he is in significant pain to participate in meaningful physical therapy. He has participated in PT in the past with no significant relief. He reports numbness in his legs and twitching sensations at night. He requested injection for back pain today. 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 [facility] Medical History Mass of right foot Acid reflux Impaired glucose tolerance Left sided sciatica Cirrhosis of liver Esophageal varices Screening for colon cancer Physical exam Lower back pain Surgical History History of esophagogastroduodenoscopy (EGD) Hx of colonoscopy History of right knee surgery History of myringotomy History of hand surgery History of left knee surgery Family History Father Cancer Mother Arthritis Cancer Sister In good health Daughter In good health Family/Other Substance use disorder Other History of hand surgery Social History (Updated 01/29/24 @ 09:59 by Allison Reece MD) Household Members: Family Household Members Other:: step mother Housing: House Alcohol intake: current Alcohol intake frequency: a few times a month Alcohol type: beer Patient Tobacco Use Status: Never used Tobacco e-Cigarette/Vaping Use: Never Used 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 Alert and oriented. Mood and affect appropriate. Follows and participates in conversation appropriately. Respiratory effort is unlabored. Able to transition from sit to stand unassisted. Ambulates with bilaterally normal heel strike and toe off. Straight leg raise is positive on the left side. Quality Reporting (2020) Adult ([facility] 138/09/28/68) Smoking risk assessment performed?: Yes Patient Tobacco Use Status: Never used Tobacco Results Reviewed Results Reviewed: MRI OF THE LUMBAR SPINE HISTORY: Hip pain radiating to the left leg. TECHNIQUE: Sagittal and axial T1 weighted and fast spin echo T2 weighted images were obtained. FINDINGS: The lumbar spine is anatomically aligned. There is mild loss of height with a mild anterior wedge compression deformity of the L1 vertebral body consistent with the remote, chronic, benign, healed compression fracture. The remaining vertebral body heights are relatively well maintained. The conus is unremarkable in morphology, signal and position. There is loss of T2 weighted signal from the intervertebral discs at L1-2, L4-5 and L5-S1 consistent with multilevel discogenic degenerative change at these levels. There are minimal degrees of disc space narrowing at these levels. The remaining intervertebral discs demonstrate normal height and signal. At the L5-S1 level, there is a small central to slightly left central disc protrusion without evidence for nerve root impingement or thecal sac compromise. There are mild degenerative endplate changes and there is also a small inferior foraminal disc protrusion on the right encroaching on the inferior aspect of the neural foramen abutting the exiting portion of the right L5 nerve root. At L4-5, there is a left central to subarticular disc protrusion resulting in mass effect on the left anterior thecal sac and mild left L5 nerve root impingement. There is no significant neural foraminal compromise. Mild degenerative endplate changes are noted. L3-4 is unremarkable in appearance. L2-3 demonstrates a tiny central disc protrusion with minimal encroachment on the central portion of the anterior thecal sac with minimal degenerative endplate change. At L1-2, there is minimal disc bulging with minimal flattening of the anterior thecal sac without significant central canal or foraminal stenosis. The visualized paravertebral soft tissues are grossly unremarkable in appearance. IMPRESSION: 1. Mild discogenic degenerative changes at L1-2, L4-5 and L5-S1, with left paramedian disc protrusion at L4-5 and small central disc protrusion at L5-S1. There is left L5 nerve root impingement at L4-5 and there is minimal disc bulging at L1-2 with a tiny central disc protrusion at L2-3. 2. Mild chronic, healed compression fracture deformity of L1. Assessment & Plan Assessment & Plan (1) Lumbar radicular pain: Code(s): M54.16 - Radiculopathy, lumbar region Category: Medical Plan 58-year-old male with longstanding low back pain associated with sciatica secondary to discogenic degeneration as well as likely nerve root impingement. Since his last scan was almost 20 years ago, I reordered an MRI scan of the lumbar spine. He will receive a call from the radiology department to schedule the appointment. Meanwhile we will schedule him for a left parasagittal interlaminar L4-5 KIERA for his left-sided sciatica symptoms that seemed to have responded well to a prior L5 TFESI. We will review his MRI after the L4-5 injection to see if there are any other targets to address afterwards. Discussed the risks and benefits of the procedure with the patient in detail. All questions were answered. The patient is on board with the plan. Justification for interventional therapy: ? Patient with average pain > 6/10 ? Patient has exhausted conservative therapy ? Patient unable to tolerate physical therapy due to pain ? Previous injection provided more than 90% relief for 24 months . Patient has a good understanding of their pain condition and has appropriate mental and social support Scribed for Dr. Lua by Sal Jensen, back office medical assistant, on 02/12/2024. I, Dr. Lua, have personally reviewed and agree with the information entered by the scribe. Orders: Orders MR lumbar spine wo con Today M54.16 - Radiculopathy, lumbar region Coding Level of Care Code New Pt Level 4 (63959) Diagnoses Lumbar radicular pain M54.16
[2024-02-12 09:38] VITALS: BP 128/78; PULSE 88; RESP 14; O2SAT 98; BMI 34.0
== END 2024-02-12 10:00 | disposition home or self-care (01) ==
LOC: HO.PMC 09:36
PROVIDERS: PCP Internal Medicine; Referring Provider Internal Medicine; Visit Provider Internal Medicine
DX: M54.16 Radiculopathy, lumbar region (principal)
CPT/HCPCS: 99204

== ENCOUNTER → 2024-02-12 09:36 | Outpatient (BNVA) | payer OTHER, SELFPAY | PROVIDERS: PCP Internal Medicine; Referring Provider Internal Medicine; Visit Provider Internal Medicine | DX: M54.16 Radiculopathy, lumbar region (principal) | CPT/HCPCS: 99202 ==

== ENCOUNTER 2024-02-22 06:18 | Outpatient (REF) | payer OTHER, SELFPAY ==
--- NOTE | ~2024-02-22 | FL_ITS ---
EXAMINATION: XR FLUOROSCOPY WITH IMAGES CLINICAL INFORMATION: Radiculopathy lumbar region. COMPARISON: None available. TECHNIQUE: Fluoroscopy Supervised By: Dr. Linwood Lua. Fluoroscopy Time: 0.1 minutes. Cumulative Dose: 2.16 mGy. DAP: 0.0150 Gycm2. Images: 2. FINDINGS: Intraoperative fluoroscopy and spot films were performed during a procedure in the OR. A needle is present in the epidural space likely at L4-L5. Contrast is injected and appears to be epidural. Precise levels can not be ascertained secondary to marked coning of the images with lack of appropriate landmarks. Please correlate with Dr. Lua' report for complete details. FL/FL guidance in treatment room IMPRESSION: Intraoperative fluoroscopy and spot films were obtained. Please see Dr. Lua' report for complete details.
== END 2024-02-22 06:19 | disposition home or self-care (01) ==
LOC: CF 06:18
PROVIDERS: Visit Provider Internal Medicine
DX: M54.16 Radiculopathy, lumbar region (principal)
CPT/HCPCS: 62323; J3301; Q9967

== ENCOUNTER 2024-02-22 09:12 | Outpatient (AMB) | payer OTHER, SELFPAY ==
--- NOTE | 2024-02-22 09:12 | MHC.OFFVIS ---
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 Denies any recent cough, cold, infection, fever or other significant changes in medical history since last office visit. COUNTS INCLUDE 234 BEDS AT THE [facility] Medical History Mass of right foot Acid reflux Impaired glucose tolerance Left sided sciatica Cirrhosis of liver Esophageal varices Screening for colon cancer Physical exam Lower back pain Surgical History History of esophagogastroduodenoscopy (EGD) Hx of colonoscopy History of right knee surgery History of myringotomy History of hand surgery History of left knee surgery Family History Father Cancer Mother Arthritis Cancer Sister In good health Daughter In good health Family/Other Substance use disorder Other History of hand surgery Social History (Updated 01/29/24 @ 09:59 by Allison Reece MD) Household Members: Family Household Members Other:: step mother Housing: House Alcohol intake: current Alcohol intake frequency: a few times a month Alcohol type: beer Patient Tobacco Use Status: Never used Tobacco e-Cigarette/Vaping Use: Never Used Second Hand Smoke Exposure: No service: Yes ([employer]) Current occupational status: disabled Cognitive needs: No Hearing needs: No Vision needs: Yes Physical Exam Vital Signs: Last Vital Signs Pulse 81 02/22/24 10:05 Resp 16 02/22/24 10:05 BP 160/78 H 02/22/24 10:05 Pulse Ox 97 02/22/24 10:05 Oxygen Delivery Method Room Air 02/22/24 10:05 BMI result Body Mass Index 34.0 Office Procedures Joint Injection/Drain Joint Injection/Drain Details: Interlaminar epidural steroid injection, L4-5, left parasaggital After obtaining written consent, pre-procedure blood pressure and heart rate were stable and recorded in the nursing record. The patient was placed in the prone position. The lumbar area was widely prepped with chloraprep and draped in sterile fashion. Fluoroscopic guidance was used to identify the desired interlaminar space and for needle placement. Subcutaneous 0.5% lidocaine was used to anesthetize the skin overlying the target. A 20-gauge Sparks needle was advanced to the epidural space using loss of resistance to contrast technique under fluoroscopic AP and contralateral oblique views. There was no evidence of heme or CSF and no paresthesias were elicited with needle placement. Confirmation of epidural needle placement was performed with 1cc of omnipaque 180. Next 3 ml 0.5% lidocaine mixed with 80 mg triamcinilone was administered epidurally with no pain elicited on injection. The needle tract tubing was then cleared with 1 ml of 0.5% lidocaine. The needle was removed, skin cleansed and a sterile bandage was applied. The patient tolerated the procedure well and no complications were encountered. Following the procedure the patient's vital signs were stable. The patient was discharged home in good condition with post-procedural instructions. Time Out: Immediately prior to the procedure, the following was verbally confirmed that there is a signed consent form and that the correct patient, planned procedure, site and side are consistent with documentation and that necessary equipment and/or blood products are available prior to the start of the case. Complications: none EBL: <2 cc Coding 52394 - Caudal/Lumbar Epidural/Interlaminar with fluoroscopy Procedure code (CPT) selection complete Quality Reporting (2019) Adult ([facility] /09/28/68) Smoking risk assessment performed?: Yes Patient Tobacco Use Status: Never used Tobacco Assessment & Plan Assessment & Plan (1) Lumbar radicular pain: Code(s): M54.16 - Radiculopathy, lumbar region Category: Medical Plan Patient is status post left parasagittal interlaminar L4-5 KIERA. Patient tolerated procedure well and was discharged home in stable condition with discharge instructions. All questions were answered. We will follow-up via telephone or in clinic to assess response to therapy. A follow-up appointment was made during today's visit. Orders: Orders FL guidance in treatment room Today M54.16 - Radiculopathy, lumbar region Coding Level of Care Code Procedure Only Diagnoses Lumbar radicular pain M54.16 CPT Codes Coding - Joint 11: 95323 - Caudal/Lumbar Epidural/Interlaminar with fluoroscopy ([id number])
[2024-02-22 09:18] VITALS: BP 126/66; PULSE 96; RESP 16; O2SAT 97; BMI 34.0
[2024-02-22 10:05] VITALS: BP 160/78; PULSE 81; RESP 16; O2SAT 97
== END 2024-02-22 10:12 | disposition home or self-care (01) ==
LOC: HO.PMCPRC 09:12
PROVIDERS: PCP Internal Medicine; Visit Provider Internal Medicine
DX: M54.16 Radiculopathy, lumbar region (principal)
CPT/HCPCS: 62323

== ENCOUNTER 2024-03-25 11:10 | Outpatient (AMB) | payer OTHER, SELFPAY ==
--- NOTE | 2024-03-25 11:21 | MHC.OFFVIS ---
Vital Signs 03/25/24 11:22 Height 5 ft 9 in Weight 230 lb BMI 34.0 BP 130/68 Blood Pressure Location Lt brachial Position Sitting Respiration 14 Pulse 110 H Pulse Source Pulse Oximeter Pulse Oximetry (%) 97 Oxygen Delivery Method Room Air Intake Visit Reasons: s/p Left L4-L5 interlaminar KIERA Allergies Penicillins [PENICILLINS] Allergy (Severe, Verified 03/25/24 11:24) HIVES trazodone Allergy (Intermediate, Verified 03/25/24 11:24) pruritus Medication List - Last Reconciled 03/25/24 by Mell Allred LPN pantoprazole 20 mg PO DAILY HPI HPI s/p Left L4-L5 interlaminar KIERA: Details: 58-year-old male who presents today to the office for status post left L4-L5 interlaminar epidural steroid injection. The patient reports 80% relief following the procedure. He noticed some clear discharge from the injection site after the procedure for two days, which eventually stopped. He still has mild difficulty sitting for prolonged periods of time. He still has some night time symptoms when he is unable to get comfortable but this is secondary to his inadequate sleeping situation. He is a side sleeper. He has a scheduled appointment for an MRI scan on 04/08/2024. His last MRI scan was in 2006. Past procedures 02/22/24: Interlaminar epidural steroid injection, L4-5, left parasaggital: 80% relief. [facility] Medical History Mass of right foot Acid reflux Impaired glucose tolerance Left sided sciatica Cirrhosis of liver Esophageal varices Screening for colon cancer Physical exam Lower back pain Surgical History History of esophagogastroduodenoscopy (EGD) Hx of colonoscopy History of right knee surgery History of myringotomy History of hand surgery History of left knee surgery Family History Father Cancer Mother Arthritis Cancer Sister In good health Daughter In good health Family/Other Substance use disorder Other History of hand surgery Social History (Updated 01/29/24 @ 09:59 by Allison Reece MD) Household Members: Family Household Members Other:: step mother Housing: House Alcohol intake: current Alcohol intake frequency: a few times a month Alcohol type: beer Patient Tobacco Use Status: Never used Tobacco e-Cigarette/Vaping Use: Never Used Second Hand Smoke Exposure: No service: Yes ([email or web address]) Current occupational status: disabled Cognitive needs: No Hearing needs: No Vision needs: Yes Review of Systems Const All systems reviewed & are unremarkable except as noted in HPI and below Physical Exam Vital Signs: Last Vital Signs Pulse 110 H 03/25/24 11:22 Resp 14 03/25/24 11:22 BP 130/68 03/25/24 11:22 Pulse Ox 97 03/25/24 11:22 Oxygen Delivery Method Room Air 03/25/24 11:22 BMI result Body Mass Index 34.0 General: Appears afebrile. Alert and oriented. Mood and affect appropriate. Follows and participates in conversation appropriately. Respiratory effort is unlabored. Able to transition from sit to stand unassisted. Ambulates with bilaterally normal heel strike and toe off. Quality Reporting (2019) Adult ([facility] 138/09/28/68) Smoking risk assessment performed?: Yes Patient Tobacco Use Status: Never used Tobacco Results Reviewed Results Reviewed: No imaging is available for review. Assessment & Plan Assessment & Plan (1) Lumbar radicular pain: Code(s): M54.16 - Radiculopathy, lumbar region Category: Medical Plan He has 80% relief in his symptoms. He continues to have some night time symptoms when he is unable to get comfortable but this is likely secondary to his inadequate sleeping situation at this time. I counseled him about obtaining a mattress to sleep on. Follow up with us for repeat injection as needed if and when his symptoms flare up again. Scribed for Dr. Lua by Sal Jensen, pediatric medical assistant, on 03/25/2024. I, Dr. Lua, have personally reviewed and agree with the information entered by the scribe. Coding Level of Care Code Est Pt Level 3 (13830) Diagnoses Lumbar radicular pain M54.16
[2024-03-25 11:22] VITALS: BP 130/68; PULSE 110; RESP 14; O2SAT 97; BMI 34.0
== END 2024-03-25 11:41 | disposition home or self-care (01) ==
LOC: HO.PMC 11:10
PROVIDERS: PCP Internal Medicine; Visit Provider Internal Medicine
DX: M54.16 Radiculopathy, lumbar region (principal)
CPT/HCPCS: 99213

== ENCOUNTER → 2024-03-25 11:10 | Outpatient (BNVA) | payer OTHER, SELFPAY | PROVIDERS: PCP Internal Medicine; Visit Provider Internal Medicine | DX: M54.16 Radiculopathy, lumbar region (principal) | CPT/HCPCS: 99212 ==

== ENCOUNTER → 2024-04-09 10:08 | Outpatient (BNV) | payer OTHER, SELFPAY | PROVIDERS: PCP Internal Medicine; Visit Provider Radiology Diagnostic Radiology | DX: M54.50 Low back pain, unspecified (principal) | CPT/HCPCS: 72148 ==

== ENCOUNTER 2024-04-09 10:11 | Outpatient (REF) | payer OTHER, SELFPAY ==
--- NOTE | ~2024-04-09 | MR_ITS ---
EXAMINATION: MR LUMBAR SPINE WITHOUT CONTRAST CLINICAL INFORMATION: Low back pain, radiating to left leg; radiculopathy. COMPARISON: No relevant prior. TECHNIQUE: Multiplanar multisequence MR imaging of the lumbar spine was done without IV contrast. Standard sequences were utilized without gadolinium. FINDINGS: CORONAL ALIGNMENT: Trace dextroconvex convex scoliosis, apex L2. SAGITTAL ALIGNMENT: -Normal lordosis. 3 mm degenerative retrolisthesis L1 on L2. -3 mm degenerative retrolisthesis L5 on S1. -Alignment is otherwise anatomic. LUMBOSACRAL JUNCTION: Normal. There are 5 muc-sjo-czwffmy lumbar-type vertebral bodies. VERTEBRAL BODIES/BONE MARROW: -There is minimal superior endplate deformity of L5 anteriorly with associated Schmorl's node. No additional compression deformities. -Mildly edematous Schmorl's node in the inferior endplate, right aspect, L5. -No additional abnormal bone marrow edema or evidence of abnormal infiltrating bone marrow signal. Subcentimeter hemangiomata noted in L1, L4, and L5. DISCS: -Moderate loss of disc height and signal at L1-2, and L5-S1. -Mild loss of disc height and signal at L4-5. -Preservation of disc height with loss of signal L2-3 and L3-4. -Flowing fused disc osteophyte oriented to the right neural foramen and lateral to foramen at L1-2. SPINAL CANAL: No abnormal developmental findings. CONUS MEDULLARIS: Terminates at inferior endplate L1.. Morphology and signal is normal. INTRADURAL NERVE ROOTS: No masses or abnormal clumping. Normal distribution. Axial Disc Space Images: T11-T12: Only seen sagittally, there is a small left lateral disc extrusion with no significant mass effect upon the thecal sac, lateral recess, or neural foramen. Central canal is patent. T12-L1: No central canal or neural foraminal narrowing. L1-L2: Retrolisthesis. There is a diffuse shallow disc bulge present with annular fissuring in the right paracentral and lateral region, with a superimposed left paracentral and lateral disc protrusion extending into the left foraminal zone. In addition, there is a right foraminal and lateral to foramen large flowing disc osteophyte present, which may be contacting the extraforaminal right L1 root. Mild degenerative hypertrophic facet changes are present bilaterally. Findings result in minimal central canal narrowing, mild left subarticular recess narrowing, and mild bilateral neural foraminal narrowing. L2-L3: There is a shallow concentric disc bulge present slightly asymmetrically prominent to the right into the right neural foramen and lateral to foramen. There is a small central annular fissure. Mild hypertrophic degenerative facet changes bilaterally with mild ligamentous thickening/infolding. There is minimal central canal narrowing, minimal subarticular recess narrowing bilaterally, and mild bilateral neural foraminal narrowing right greater than left. L3-L4: There is a concentric shallow disc bulge present extending into both foraminal zones which indents mildly upon the ventral thecal sac but does not result in significant canal narrowing. There are mild hypertrophic facet changes bilaterally, with mild posterior ligamentous thickening/infolding. There is mild central canal narrowing, mild to moderate bilateral subarticular recess narrowing right greater than left, with contact but no impingement of the traversing right greater than left L4 roots. There is mild to moderate neural foraminal narrowing bilaterally. L4-L5: There is a diffusely extruded disc present extending into both foraminal zones concentrically. There are mild to moderate hypertrophic degenerative facet changes with mild posterior ligamentous infolding/thickening. Combination of findings is resulting in mild central canal narrowing, moderate bilateral subarticular recess narrowing, with contact and possible mild impingement upon the right greater than left traversing L5 nerve roots. There is chos-[id number]-fvpuziuw bilateral neural foraminal narrowing without nerve root impingement. L5-S1: Shallow diffuse disc bulge is present with central and left lateral annular fissuring, extending into both foraminal zones. There are mild hypertrophic degenerative facet changes right greater than left, with minimal posterior ligamentous infolding/thickening. No central canal narrowing or lateral recess narrowing. There is a prominent far left lateral to foramen disc osteophytic protrusion (series 9, image 25), which appears to be contacting and possibly deviating the exited left L5 nerve root. Correlate for left L5 radiculopathy. There is moderate right and moderate left neural foraminal narrowing. IMAGED SI JOINTS: Moderate degenerative arthritis bilaterally. Partially imaged. PARAVERTEBRAL AND INCLUDED EXTRASPINAL SOFT TISSUES: -The aorta is normal in caliber. -There are large, tortuous splenorenal varices, partially imaged, partially obscured by saturation band. -No paravertebral or paraspinous soft tissue abnormalities. -Subcutaneous edema in the central paraspinous superficial subcutaneous fat, nonspecific. MR/MR lumbar spine wo con IMPRESSION: 1. Spondylosis as discussed, most significant at L1-2, L4-5, and L5-S1. Please see above for details. 2. Partially imaged large splenorenal varices. Electronically signed by: Neil Ruiz MD 04/26/2024 10:54 AM EDT
== END 2024-04-09 10:12 | disposition home or self-care (01) ==
LOC: HO.MRI 10:11
PROVIDERS: PCP Internal Medicine; Visit Provider Internal Medicine
DX: M54.16 Radiculopathy, lumbar region (principal)
CPT/HCPCS: 72148

== ENCOUNTER 2024-05-01 11:56 | Outpatient (AMB) | payer OTHER, SELFPAY ==
--- NOTE | 2024-05-01 11:57 | MHC.OFFVIS ---
Intake Visit Reasons: Injection concerns Allergies Penicillins [PENICILLINS] Allergy (Severe, Verified 05/22/24 11:23) HIVES trazodone Allergy (Intermediate, Verified 05/22/24 11:23) pruritus HPI HPI Injection concerns: Details: Patient reports he woke up with left leg numbness the other day which started originally after getting a shot about 7 weeks ago. He experiences pain and spasms in the left calf while walking. He describes the pain as aching, sharp, and ?grabbing a bunch needles.? He had tried heating pad and ice which alleviates the pain for sometime, but the pain recurs. He also has pain in the knees, ankles, and low back pain. He notices pain between the shoulder blades, left worse than the right. [facility] Medical History Mass of right foot Acid reflux Impaired glucose tolerance Left sided sciatica Cirrhosis of liver Esophageal varices Screening for colon cancer Physical exam Lower back pain Surgical History History of esophagogastroduodenoscopy (EGD) Hx of colonoscopy History of right knee surgery History of myringotomy History of hand surgery History of left knee surgery Family History Father Cancer Mother Arthritis Cancer Sister In good health Daughter In good health Family/Other Substance use disorder Other History of hand surgery Social History (Updated 01/29/24 @ 09:59 by Allison Reece MD) Household Members: Family Household Members Other:: step mother Housing: House Alcohol intake: current Alcohol intake frequency: a few times a month Alcohol type: beer Patient Tobacco Use Status: Never used Tobacco e-Cigarette/Vaping Use: Never Used Second Hand Smoke Exposure: No service: Yes ([employer]) Current occupational status: disabled Cognitive needs: No Hearing needs: No Vision needs: Yes Physical Exam Vital Signs: On exam today: Appears afebrile. Alert and oriented. Mood and affect appropriate. Follows and participates in conversation appropriately. Respiratory effort is unlabored. Able to transition from sit to stand unassisted. Ambulates with bilaterally normal heel strike and toe off. Able to stand and walk on toes and heels. Quality Reporting (2019) Adult ([facility] 138/09/28/68) Smoking risk assessment performed?: Yes Patient Tobacco Use Status: Never used Tobacco Telehealth Telehealth Telehealth Platform: Telephone Location of provider rendering services: practice address Location of patient: address on file Patient Identification confirmed using: Name, : Yes Telehealth method: voice only Patient verbally consented to treatment: Yes Patient verbally consented to billing insurance company: Yes Patient informed of any privacy concerns related to visit: Yes Assessment & Plan Assessment & Plan (1) Cervical spondylosis: Code(s): M47.812 - Spondylosis without myelopathy or radiculopathy, cervical region Category: Medical (2) Thoracic spondylosis: Code(s): M47.814 - Spondylosis without myelopathy or radiculopathy, thoracic region Category: Medical (3) Lumbar radicular pain: Code(s): M54.16 - Radiculopathy, lumbar region Category: Medical Plan Will schedule for a left TFESI for intermediate term relief. For long-term solution of his ongoing lumbar radicular symptoms, I placed a referral for neurosurgery for consideration of addressing his far left lateral L5 lumbar disc herniation causing nerve root compression. Discussed that shoulder pain is most likely due to neck. Will refer him to physical therapy for neck and upper back. Orders: Orders PT Evaluation and Treatment 05/01/24 M47.812 - Spondylosis without myelopathy or radiculopathy, cervical region, M47.814 - Spondylosis without myelopathy or radiculopathy, thoracic region CT lumbar spine wo IV con 05/01/24 M54.16 - Radiculopathy, lumbar region Coding Level of Care Code Est Pt Level 4 (48263) Diagnoses Cervical spondylosis M47.812 Thoracic spondylosis M47.814 Lumbar radicular pain M54.16
== END 2024-05-01 11:57 | disposition home or self-care (01) ==
LOC: HO.PMC 11:57
PROVIDERS: PCP Internal Medicine; Visit Provider Internal Medicine
DX: M47.812 Spondylosis without myelopathy or radiculopathy, cervical region (principal); M47.814 Spondylosis without myelopathy or radiculopathy, thoracic region; M54.16 Radiculopathy, lumbar region
CPT/HCPCS: 99214

== ENCOUNTER → 2024-05-01 11:56 | Outpatient (BNVA) | payer OTHER, SELFPAY | PROVIDERS: PCP Internal Medicine; Visit Provider Internal Medicine | DX: M47.812 Spondylosis without myelopathy or radiculopathy, cervical region (principal); M47.814 Spondylosis without myelopathy or radiculopathy, thoracic region; M54.16 Radiculopathy, lumbar region | CPT/HCPCS: 99212 ==

== ENCOUNTER 2024-05-07 07:36 | Outpatient (REF) | payer OTHER, SELFPAY ==
--- NOTE | ~2024-05-07 | US_ITS ---
EXAMINATION: US ABDOMEN LIMITED CLINICAL INFORMATION: Alcoholic cirrhosis of liver without ascites. COMPARISON: Ultrasound abdomen complete 11/16/2023 and 05/12/2023. MRI abdomen 12/14/2016. CT abdomen and pelvis 09/24/2012. TECHNIQUE: Real-time imaging of the right upper quadrant abdominal viscera. Limited visualization due to bowel gas and body habitus. FINDINGS: PANCREAS: Poorly visualized. LIVER: Redemonstration of cirrhotic appearance of the liver with heterogeneous hepatic echotexture and severely limited visualization. 1.2 cm cyst inferior left hepatic lobe. Prominent vascular structure in the region of the head of the pancreatic duct is difficult to characterize due to limited visualization. Radiologist was not in attendance at time of exam. Images were later provided for interpretation. Differential considerations include prominent portal vein versus varices. Hepatofugal flow demonstrated on images provided. GALLBLADDER: Cholelithiasis. Gallbladder wall thickening of 4 mm, although evaluation limited due to suboptimal distention of the gallbladder and limited visualization. COMMON BILE DUCT: Normal in caliber measuring 0.3 cm in diameter. RIGHT KIDNEY: No hydronephrosis. No renal calculi. Limited visualization. The kidney measures 13.3 cm in maximum dimension. FREE FLUID: None. US/US abdomen limited IMPRESSION: 1. Redemonstration of cirrhotic appearance of the liver with heterogeneous hepatic echotexture and severely limited visualization. Redemonstration of hepatofugal flow in the portal vein. 2. A 1.2 cm cyst inferior left hepatic lobe. 3. Prominent vascular structure in the region of the head of the pancreatic duct is difficult to characterize due to limited visualization.. Differential considerations include prominent portal vein versus varices. 4. Cholelithiasis. Gallbladder wall thickening of 4 mm, although evaluation limited due to suboptimal distention of the gallbladder and limited visualization. Electronically signed by: Paris Phillips MD 05/15/2024 01:04 PM EDT
== END 2024-05-07 07:37 | disposition home or self-care (01) ==
LOC: HO.US 07:36
PROVIDERS: PCP Internal Medicine; Visit Provider Internal Medicine
DX: K70.30 Alcoholic cirrhosis of liver without ascites (principal)
CPT/HCPCS: 76705

== ENCOUNTER 2024-05-22 11:19 | Outpatient (AMB) | payer OTHER, SELFPAY ==
[2024-05-22 11:21] VITALS: BP 115/66; PULSE 113; RESP 16; O2SAT 95; BMI 32.0
--- NOTE | 2024-05-22 11:21 | A.OFFVIS_ITS ---
Vital Signs 05/22/24 11:21 Height 5 ft 9 in Weight 217 lb BMI 32.0 BP 115/66 Blood Pressure Location Lt brachial Position Sitting Respiration 16 Pulse 113 H Pulse Source Pulse Oximeter Pulse Oximetry (%) 95 Oxygen Delivery Method Room Air Intake Visit Reasons: Discuss MRI Results Allergies Penicillins [PENICILLINS] Allergy (Severe, Verified 05/22/24 11:23) HIVES trazodone Allergy (Intermediate, Verified 05/22/24 11:23) pruritus Medication List - Last Reconciled 05/22/24 by Mell Allred LPN pantoprazole 20 mg PO DAILY HPI HPI Discuss MRI Results: Details: 58-year-old male who presents today to the office to discuss MRI results. He reports he still continues to have hip pain and upper back pain. He noticed relief for a couple of weeks following the injection which he received in 02/27. He reports he has neck pain, mostly between the shoulder blades. He is using Icyhot without much relief. He has not done PT for neck. He was referred to PT last time, but he did not get any call regarding that. He has not tried any conservative therapy for neck pain. Past procedures 02/22/24: Interlaminar epidural steroid injection, L4-5, left parasaggital: 80% relief. [facility] Medical History Mass of right foot Acid reflux Impaired glucose tolerance Left sided sciatica Cirrhosis of liver Esophageal varices Screening for colon cancer Physical exam Lower back pain Surgical History History of esophagogastroduodenoscopy (EGD) Hx of colonoscopy History of right knee surgery History of myringotomy History of hand surgery History of left knee surgery Family History Father Cancer Mother Arthritis Cancer Sister In good health Daughter In good health Family/Other Substance use disorder Other History of hand surgery Social History (Updated 01/29/24 @ 09:59 by Allison Reece MD) Household Members: Family Household Members Other:: step mother Housing: House Alcohol intake: current Alcohol intake frequency: a few times a month Alcohol type: beer Patient Tobacco Use Status: Never used Tobacco e-Cigarette/Vaping Use: Never Used Second Hand Smoke Exposure: No service: Yes ([employer]) Current occupational status: disabled Cognitive needs: No Hearing needs: No Vision needs: Yes Physical Exam Vital Signs: Last Vital Signs Pulse 113 H 05/22/24 11:21 Resp 16 05/22/24 11:21 BP 115/66 05/22/24 11:21 Pulse Ox 95 05/22/24 11:21 Oxygen Delivery Method Room Air 05/22/24 11:21 BMI result Body Mass Index 32.0 General: Appears afebrile. Alert and oriented. Mood and affect appropriate. Follows and participates in conversation appropriately. Respiratory effort is unlabored. Able to transition from sit to stand unassisted. Ambulates with bilaterally normal heel strike and toe off. Quality Reporting (2019) Adult ([facility] 138/09/28/68) Smoking risk assessment performed?: Yes Patient Tobacco Use Status: Never used Tobacco Results Reviewed Results Reviewed: Date: 04/09/24 EXAMINATION: MR LUMBAR SPINE WITHOUT CONTRAST FINDINGS: CORONAL ALIGNMENT: Trace dextroconvex convex scoliosis, apex L2. SAGITTAL ALIGNMENT: -Normal lordosis. 3 mm degenerative retrolisthesis L1 on L2. -3 mm degenerative retrolisthesis L5 on S1. -Alignment is otherwise anatomic. LUMBOSACRAL JUNCTION: Normal. There are 5 axh-utr-vomfwho lumbar-type vertebral bodies. VERTEBRAL BODIES/BONE MARROW: -There is minimal superior endplate deformity of L5 anteriorly with associated Schmorl's node. No additional compression deformities. -Mildly edematous Schmorl's node in the inferior endplate, right aspect, L5. -No additional abnormal bone marrow edema or evidence of abnormal infiltrating bone marrow signal. Subcentimeter hemangiomata noted in L1, L4, and L5. DISCS: -Moderate loss of disc height and signal at L1-2, and L5-S1. -Mild loss of disc height and signal at L4-5. -Preservation of disc height with loss of signal L2-3 and L3-4. -Flowing fused disc osteophyte oriented to the right neural foramen and lateral to foramen at L1-2. SPINAL CANAL: No abnormal developmental findings. CONUS MEDULLARIS: Terminates at inferior endplate L1.. Morphology and signal is normal. INTRADURAL NERVE ROOTS: No masses or abnormal clumping. Normal distribution. Axial Disc Space Images: T11-T12: Only seen sagittally, there is a small left lateral disc extrusion with no significant mass effect upon the thecal sac, lateral recess, or neural foramen. Central canal is patent. T12-L1: No central canal or neural foraminal narrowing. L1-L2: Retrolisthesis. There is a diffuse shallow disc bulge present with annular fissuring in the right paracentral and lateral region, with a superimposed left paracentral and lateral disc protrusion extending into the left foraminal zone. In addition, there is a right foraminal and lateral to foramen large flowing disc osteophyte present, which may be contacting the extraforaminal right L1 root. Mild degenerative hypertrophic facet changes are present bilaterally. Findings result in minimal central canal narrowing, mild left subarticular recess narrowing, and mild bilateral neural foraminal narrowing. L2-L3: There is a shallow concentric disc bulge present slightly asymmetrically prominent to the right into the right neural foramen and lateral to foramen. There is a small central annular fissure. Mild hypertrophic degenerative facet changes bilaterally with mild ligamentous thickening/infolding. There is minimal central canal narrowing, minimal subarticular recess narrowing bilaterally, and mild bilateral neural foraminal narrowing right greater than left. L3-L4: There is a concentric shallow disc bulge present extending into both foraminal zones which indents mildly upon the ventral thecal sac but does not result in significant canal narrowing. There are mild hypertrophic facet changes bilaterally, with mild posterior ligamentous thickening/infolding. There is mild central canal narrowing, mild to moderate bilateral subarticular recess narrowing right greater than left, with contact but no impingement of the traversing right greater than left L4 roots. There is mild to moderate neural foraminal narrowing bilaterally. L4-L5: There is a diffusely extruded disc present extending into both foraminal zones concentrically. There are mild to moderate hypertrophic degenerative facet changes with mild posterior ligamentous infolding/thickening. Combination of findings is resulting in mild central canal narrowing, moderate bilateral subarticular recess narrowing, with contact and possible mild impingement upon the right greater than left traversing L5 nerve roots. There is [id number] bilateral neural foraminal narrowing without nerve root impingement. L5-S1: Shallow diffuse disc bulge is present with central and left lateral annular fissuring, extending into both foraminal zones. There are mild hypertrophic degenerative facet changes right greater than left, with minimal posterior ligamentous infolding/thickening. No central canal narrowing or lateral recess narrowing. There is a prominent far left lateral to foramen disc osteophytic protrusion (series 9, image 25), which appears to be contacting and possibly deviating the exited left L5 nerve root. Correlate for left L5 radiculopathy. There is moderate right and moderate left neural foraminal narrowing. IMAGED SI JOINTS: Moderate degenerative arthritis bilaterally. Partially imaged. PARAVERTEBRAL AND INCLUDED EXTRASPINAL SOFT TISSUES: -The aorta is normal in caliber. -There are large, tortuous splenorenal varices, partially imaged, partially obscured by saturation band. -No paravertebral or paraspinous soft tissue abnormalities. -Subcutaneous edema in the central paraspinous superficial subcutaneous fat, nonspecific. 1. Spondylosis as discussed, most significant at L1-2, L4-5, and L5-S1. Please see above for details. 2. Partially imaged large splenorenal varices. Assessment & Plan Assessment & Plan (1) Lumbar radicular pain: Code(s): M54.16 - Radiculopathy, lumbar region Category: Medical Plan Reviewed MRI images indicating the nature of compressive pathology for his left- sided radiculopathy. I counseled him regarding the need for the CT to better assess the bony anatomy surrounding the compressive region. Once we get the CT, I will review it with spine surgery and see what can be done for it. In the meanwhile, I provided him with contact information for our physical therapy department since he has not received a phone call for his cervical spondylosis. Referred to physical therapy. He will follow up with them for PT. Scribed for Dr. Lua by Joshua emergency medical service manager, on 05/22/2024. I, Dr. Lua, have personally reviewed and agree with the information entered by the scribe Coding Level of Care Code Est Pt Level 3 (52404) Diagnoses Lumbar radicular pain M54.16
== END 2024-05-22 12:05 | disposition home or self-care (01) ==
PROVIDERS: PCP Internal Medicine; Visit Provider Internal Medicine
DX: M54.16 Radiculopathy, lumbar region (principal)
CPT/HCPCS: 99213

== ENCOUNTER → 2024-05-22 11:19 | Outpatient (BNVA) | payer OTHER, SELFPAY | PROVIDERS: PCP Internal Medicine; Visit Provider Internal Medicine | DX: M54.16 Radiculopathy, lumbar region (principal) | CPT/HCPCS: 99212 ==

== ENCOUNTER 2024-06-04 11:17 | Outpatient (REF) | payer OTHER, SELFPAY | END 2024-06-04 11:18 | disposition home or self-care (01) | LOC: HO.CT 11:17 | PROVIDERS: PCP Internal Medicine; Visit Provider Internal Medicine | DX: M54.16 Radiculopathy, lumbar region (principal) | CPT/HCPCS: 72131 ==

== ENCOUNTER → 2024-06-04 11:20 | Outpatient (BNV) | payer OTHER, SELFPAY | PROVIDERS: PCP Internal Medicine; Visit Provider Radiology Diagnostic Radiology | DX: M96.1 Postlaminectomy syndrome, not elsewhere classified (principal) | CPT/HCPCS: 72131 ==

== ENCOUNTER 2024-07-20 16:42 | Emergency (ER) | payer OTHER, SELFPAY ==
--- NOTE | ~2024-07-20 | CT_ITS ---
EXAMINATION: CT SCAN OF THE CHEST ABDOMEN PELVIS WITH CONTRAST CLINICAL INFORMATION: fall 13 steps. COMPARISON: MRI of the abdomen December 2016. Abdominal ultrasound May 2024 TECHNIQUE: CT scan of the abdomen and pelvis was performed with 85 mL of Omnipaque 350 given intravenously. Additional sagittal and coronal two-dimensional reconstruction imaging was obtained at the acquisition workstation. FINDINGS: CHEST CT: Lungs and pleural spaces: Minimal posterior dependent atelectasis at. Airways: Clear. CARDIOVASCULAR: Mild calcific atherosclerotic disease. Coronary artery calcifications. Heart size within normal limits. No pericardial effusion. Lymph nodes: Normal. Esophagus: Normal. Chest wall/soft tissues: Normal. Osseous structures: Multilevel spondylosis of lumbosacral spine with prominent ossification along the anterior longitudinal ligament CT ABDOMEN AND PELVIS: Axial LIVER: Decreased attenuation of liver compatible with hepatic steatosis. No focal lesion. No intrahepatic or extrahepatic biliary dilatation. GALLBLADDER AND BILIARY TREE: Numerous calcified gallstones. PANCREAS: Normal. SPLEEN: Normal. ADRENAL GLANDS: Normal. URINARY TRACT (KIDNEYS, URETERS, BLADDER): Normal. PELVIC ORGANS: Normal. PERITONEAL CAVITY: Normal. MESENTERY/OMENTUM: Normal. GI TRACT (STOMACH, SMALL BOWEL, LARGE BOWEL): Normal. APPENDIX: Normal. LYMPH NODES: Normal VASCULAR: Mild to moderate calcific atherosclerotic disease throughout. ABDOMINAL WALL/SOFT TISSUES: Normal. SKELETAL: Mild arthrosis of the sacroiliac joints. Multilevel spondylosis of lumbar sacral spine with degenerative disc changes throughout and vacuum disc phenomena at the L4-L5 and L5-S1 levels.. CT/CT chest w IV con IMPRESSION: CHEST: No acute abnormality. ABDOMEN AND PELVIS: 1. No acute abnormality. 2. Hepatic steatosis. 3. Cholelithiasis. 4. Mild to moderate calcific atherosclerotic disease. Electronically signed by: Hang Rivera MD 07/20/2024 08:14 PM [facility]
--- NOTE | ~2024-07-20 | CT_ITS ---
EXAMINATION: CT SCAN OF THE CHEST ABDOMEN PELVIS WITH CONTRAST CLINICAL INFORMATION: fall 13 steps. COMPARISON: MRI of the abdomen December 2016. Abdominal ultrasound May 2024 TECHNIQUE: CT scan of the abdomen and pelvis was performed with 85 mL of Omnipaque 350 given intravenously. Additional sagittal and coronal two-dimensional reconstruction imaging was obtained at the acquisition workstation. FINDINGS: CHEST CT: Lungs and pleural spaces: Minimal posterior dependent atelectasis at. Airways: Clear. CARDIOVASCULAR: Mild calcific atherosclerotic disease. Coronary artery calcifications. Heart size within normal limits. No pericardial effusion. Lymph nodes: Normal. Esophagus: Normal. Chest wall/soft tissues: Normal. Osseous structures: Multilevel spondylosis of lumbosacral spine with prominent ossification along the anterior longitudinal ligament CT ABDOMEN AND PELVIS: Axial LIVER: Decreased attenuation of liver compatible with hepatic steatosis. No focal lesion. No intrahepatic or extrahepatic biliary dilatation. GALLBLADDER AND BILIARY TREE: Numerous calcified gallstones. PANCREAS: Normal. SPLEEN: Normal. ADRENAL GLANDS: Normal. URINARY TRACT (KIDNEYS, URETERS, BLADDER): Normal. PELVIC ORGANS: Normal. PERITONEAL CAVITY: Normal. MESENTERY/OMENTUM: Normal. GI TRACT (STOMACH, SMALL BOWEL, LARGE BOWEL): Normal. APPENDIX: Normal. LYMPH NODES: Normal VASCULAR: Mild to moderate calcific atherosclerotic disease throughout. ABDOMINAL WALL/SOFT TISSUES: Normal. SKELETAL: Mild arthrosis of the sacroiliac joints. Multilevel spondylosis of lumbar sacral spine with degenerative disc changes throughout and vacuum disc phenomena at the L4-L5 and L5-S1 levels.. CT/CT abdomen pelvis w IV con IMPRESSION: CHEST: No acute abnormality. ABDOMEN AND PELVIS: 1. No acute abnormality. 2. Hepatic steatosis. 3. Cholelithiasis. 4. Mild to moderate calcific atherosclerotic disease. Electronically signed by: Hang Rivera MD 07/20/2024 08:14 PM [facility]
--- NOTE | ~2024-07-20 | CT_ITS ---
EXAMINATION: CT HEAD WITHOUT CONTRAST CLINICAL INFORMATION: Fall 2012 steps COMPARISON: None available. TECHNIQUE: Contiguous axial imaging was performed from the skull base to vertex without intravenous administration of contrast. This CT examination was performed using dose optimization techniques as appropriate, variously including the following: *Automated exposure control *Adjustment of mA and/or kV according to patient size (this includes techniques or standardized protocols for targeted exams where dose is matched to indication/reason for exam; i.e. extremities or head) *Use of iterative reconstruction technique DLP: 1457 mGy-cm FINDINGS: There is no mass hemorrhage or cerebral edema. No extra-axial fluid collections. Soft tissue/scalp: Normal. Osseous structures: No fracture Sinuses: Clear. Mastoid air cells clear. CT/CT head/brain wo IV con IMPRESSION: No acute intracranial pathology. Electronically signed by: Hang Rivera MD 07/20/2024 08:04 PM [facility]
--- NOTE | ~2024-07-20 | CT_ITS ---
EXAMINATION: CT CERVICAL SPINE WITHOUT CONTRAST CLINICAL INFORMATION: Fall COMPARISON: X-rays of the cervical spine August 2015 TECHNIQUE: CT scan of cervical spine was performed with reconstruction imaging at the acquisition workstation. This CT examination was performed using dose optimization techniques as appropriate, variously including the following: *Automated exposure control *Adjustment of mA and/or kV according to patient size (this includes techniques or standardized protocols for targeted exams where dose is matched to indication/reason for exam; i.e. extremities or head) *Use of iterative reconstruction technique DLP: 663 mGy-cm FINDINGS: Exam is partially limited by motion artifact There is no fracture. There is loss of the usual cervical lordosis There is no fracture or malalignment. Vertebral bodies normal in height and alignment. Multilevel spondylosis of the cervical spine with degenerative disc changes present from C4-C5 through C7-T1 along with scattered mild facet arthrosis. Surrounding soft tissues are normal. CT/CT cervical spine wo IV con IMPRESSION: 1. No acute abnormality. 2. Multilevel spondylosis of the cervical spine.r Fleischner guidelines were followed. Electronically signed by: Hang Rivera MD 07/20/2024 08:02 PM [facility]
[2024-07-20 16:47] VITALS: BP 128/86; PULSE 94; O2SAT 98
[2024-07-20 16:55] VITALS: BP 147/87; PULSE 100; RESP 18; TEMP 36.6; O2SAT 97; BMI 35.9
--- NOTE | 2024-07-20 17:04 | ED_ITS ---
HPI - Fall General Chief Complaint: Fall Stated Complaint: fell down 13 stairs 1.5 days ago w/ loc Time Seen by Provider: 07/20/24 16:59 Source: patient and EMS Mode of arrival: EMS Limitations: no limitations History of Present Illness ED Provider: DR. Love HPI Narrative: 59-year-old male brought in by ambulance for evaluation after fall happen yesterday at home. Patient was gone down stair when he slipped and fell 13 steps of stairs causing head,neck, chest, and abdomen tenderness, positive LOC. patient declined any taking any anticoagulation. Related Data Previous Rx's ?Medication ?Instructions ?Recorded pantoprazole 20 mg tablet,delayed 20 mg PO DAILY #90 tabs 03/26/24 release Allergies Allergy/AdvReac Type Severity Reaction Status Date / Time Penicillins [PENICILLINS] Allergy Severe HIVES Verified 07/20/24 16:57 trazodone Allergy Intermediate pruritus Verified 05/22/24 11:23 Review of Systems 2 Review of Systems: All other systems are reviewed and are negative Constitutional: Reports as per HPI and Reports no additional constitutional complaints Eyes: Reports as per HPI and Reports no additional eye complaints Reports system reviewed and no additional complaints, except as documented Cardiovascular: Reports as per HPI and Reports no additional cardiovascular complaints Respiratory: Reports as per HPI and Reports no additional respiratory complaints Gastrointestinal: Reports as per HPI and Reports no additional gastrointestinal complaints Genitourinary: Reports no additional female genitourinary complaints Musculoskeletal: Reports no additional musculoskeletal complaints Skin/Breast: Reports system reviewed and no additional complaints, except as docu Psychiatric: Reports no additional psychiatric complaints Endocrine: Reports no additional endocrine complaints Hematologic/Lymphatic: Reports no additional hematologic/lymphatic complaints Allergic/Immunologic: Reports no additional allergic/immunologic complaints Reports system reviewed and no additional complaints, except as documented and Reports Abnormal speech present [facility] Past Medical History Medical History Mass of right foot Acid reflux Impaired glucose tolerance Left sided sciatica Cirrhosis of liver Esophageal varices Screening for colon cancer Physical exam Lower back pain Surgical History History of esophagogastroduodenoscopy (EGD) Hx of colonoscopy History of right knee surgery History of myringotomy History of hand surgery History of left knee surgery Family History Family History Father Cancer Mother Arthritis Cancer Sister In good health Daughter In good health Family/Other Substance use disorder Other History of hand surgery Social History Social History Household Members: Family Household Members Other:: step mother Housing: House Alcohol intake: current Alcohol intake frequency: a few times a month Alcohol type: beer Patient Tobacco Use Status: Never used Tobacco Smoked in Last 30 Days: No e-Cigarette/Vaping Use: Never Used Second Hand Smoke Exposure: No Use of substances other than those prescribed or required for medical reasons: No Advance Directives: No Advance Directives Information Provided: No service: Yes ([employer]) Current occupational status: disabled Cognitive needs: No Hearing needs: No Vision needs: Yes Physical Exam 2 Vital Signs: Vital Signs: Last Vital Signs Temp 98.4 F 07/20/24 20:37 Pulse 90 07/20/24 20:37 Resp 17 07/20/24 20:37 BP 151/79 H 07/20/24 20:37 Pulse Ox 96 07/20/24 20:37 O2 Del Method Room Air 07/20/24 20:37 BMI result Body Mass Index 35.9 Vital signs have been reviewed and appear to be correct. Blood pressure elevated. Heart rate normal. Respiratory rate normal. Temperature normal. Oxygen saturation normal. Appearance: Alert. Oriented X3. No acute distress. Head: Normal external exam. Normocephalic. Atraumatic. No [place] signs noted. No raccoon eyes noted Eyes: PERRLA. EOMI. Conjunctiva and sclera normal. Eyelids normal. ENT: TM's Normal. Pharynx normal. Uvula midline. Moist mucous membranes. No trismus noted. No drooling noted. No muffled voice noted. Neck: Normal inspection. Neck supple. FROM. No adenopathy. Thyroid Normal. No meningeal signs. No neck mass noted. CVS: Normal heart rate and rhythm. Heart sound normal. No murmurs noted. Pulses normal throughout. Respiratory: No respiratory distress. Painless inspiration. Breath sounds normal. No wheezes/rales/rhonchi noted. Chest nontender. No accessory muscle usage noted or decreased air movement noted. Abdomen: Soft and nontender. Bowel sounds normal in all 4 quadrants. No distention noted. No organomegaly noted. No visible injury noted. Back: No CVA tenderness. Full range of motion noted. Skin: Skin warm and dry. Normal skin color. Normal skin turgor. No rashes/lesions/lacerations noted. Extremities: No lower extremity edema. Extremities exhibit normal range of motion. Extremities nontender. Neuro: Oriented X 3. Cranial nerve exam: II-XII are grossly intact No motor deficit. No sensory deficit. Reflexes normal. Course Reevaluation(s) Reevaluation #1: fall of 13 stairs complaining of multiple areas of pain in his body, negative CT head/ C-spine/ chest / abdomen for acute injury. Patient will be discharged home take NSAIDs if needed for pain. Time: 20:43 Medications Administered Discontinued Medications Generic Name Dose Route Start Last Admin Trade Name Freq PRN Reason Stop Dose Admin Acetaminophen 650 mg 07/20/24 19:22 07/20/24 19:27 Acetaminophen 325 Mg Tablet PO 07/20/24 19:23 650 mg ONCE ONE Administration Iohexol 100 ml 07/20/24 17:46 07/20/24 17:46 Iohexol 350 Mg/Ml 100 Ml Infus..Btl IV 07/20/24 17:47 85 ml ONCE ONE Administration Medical Decision Making Differential Diagnosis Differential Diagnoses: The differential diagnosis associated with the presentation includes ( Intracranial bleed, closed head injury, cervical spine fracture, cervical spine sprain, chest wall contusion, lung contusion, intrathoracic organ injuries, intra-abdominal bleed, abdominal wall contusion.) Admission/Observation Consideration of admission/observation: Escalation of care including admission/observation considered Lab Data MDM Lab Attestation statement: I reviewed the patient's lab results. 07/20/24 17:04 07/20/24 17:04 Labs: Lab Results 07/20/24 Range/Units 17:04 WBC 3.8 L (4.8-10.8) X10*3/uL RBC 3.68 L (4.60-5.80) X10*6/uL Hgb 12.1 L (14.0-18.0) g/dl Hct 34.4 L (42.0-52.0) % MCV 93.5 (80.0-98.0) fL MCH 32.9 (27.0-33.0) pg MCHC 35.2 (31.0-36.0) g/dl RDW 13.3 (11.0-16.0) % Plt Count 84 L (160-400) X10*3/uL MPV 10.4 (9.4-12.4) fL Immature Gran % (Auto) 0.0 (0.0-0.4) % Neut % (Auto) 34.5 L (45-73) % Lymph % (Auto) 40.8 H (20-40) % [place] % (Auto) 8.4 (2-11) % Eos % (Auto) 14.7 H (0-4) % Baso % (Auto) 1.6 (0-2) % Lymph # (Auto) 1.6 (1.2-4.9) X10*3/uL [place] # (Auto) 0.3 (0.1-1.2) X10*3/uL Eos # (Auto) 0.6 H (0.0-0.4) X10*3/uL Baso # (Auto) 0.1 (0.0-0.2) X10*3/uL Abs Immat Gran (auto) 0.00 (0.00-0.03) X10*3/uL Absolute Neuts (auto) 1.3 L (2.0-8.3) x10*3/uL Absolute Nucleated RBC 0.000 (0.0-0.012) X10*3/uL Nucleated RBC % (auto) 0.0 (0.0-0.2) /100WBC Sodium 144 (135-145) mmol/L Potassium 3.6 (3.3-5.1) mmol/L Chloride 109 H (96-108) mmol/L Carbon Dioxide 24 (22-29) mmol/L Anion Gap 15 (12-20) BUN 6 L (9-16) mg/dL Creatinine 0.78 (0.5-1.4) mg/dL Estim Creat Clear Calc 121.6 Estimated GFR > 60 Random Glucose 148 H (60-115) mg/dL Calcium 8.3 L (8.4-10.2) mg/dL Troponin I High Sens 7.0 (<3.5-35.0) ng/L Independent Interpretation I performed an independent interpretation of an: CT Scan ( Head/cervical spine/chest/ abdomen and pelvis CT: No acute pathology.) Radiology Impression Discussion of test interpretation with radiology: I have reviewed the radiologist's reading. Discharge Plan Discharge Clinical Impression: Fall, Chest wall contusion, Abdominal wall contusion, Closed head injury, Contusion of cervical spinal region Patient Disposition: Home, Self-Care Instructions: Contusion in Adults (ED) Prescriptions: No Action pantoprazole 20 mg tablet,delayed release (DR/EC) 20 mg PO DAILY Qty: 90 2RF Referrals: Allison Arechiga MD [Primary Care Provider] - Interventions: ED Discharge Assessment Last Done: 07/20/24 20:37 Print Language: Yi
[2024-07-20 17:09] LABS: MANUAL DIFF FLAG NO
[2024-07-20 17:12] LABS: Basophils Absolute Auto 0.1 X10*3/uL (0.0-0.2); Basophils Percent Auto 1.6 % (0-2); Eosinophils Absolute Auto 0.6 X10*3/uL (0.0-0.4); Eosinophils Percent Auto 14.7 % (0-4); Hematocrit 34.4 % (42.0-52.0); Hemoglobin 12.1 g/dl (14.0-18.0); Lymphocytes Absolute Auto 1.6 X10*3/uL (1.2-4.9); Lymphocytes Percent Auto 40.8 % (20-40); Mean Corpuscular HGB Conc 35.2 g/dl (31.0-36.0); Mean Corpuscular Hemoglobin 32.9 pg (27.0-33.0); Mean Corpuscular Volume 93.5 fL (80.0-98.0); Mean Platelet Volume 10.4 fL (9.4-12.4); Monocytes Absolute Auto 0.3 X10*3/uL (0.1-1.2); Monocytes Percent Auto 8.4 % (2-11); Neutrophils Absolute Auto 1.3 x10*3/uL (2.0-8.3); Neutrophils Percent Auto 34.5 % (45-73); Red Blood Count 3.68 X10*6/uL (4.60-5.80); Red Cell Distribution Width 13.3 % (11.0-16.0); White Blood Count 3.8 X10*3/uL (4.8-10.8)
[2024-07-20 17:23] LABS: Anion Gap 15 (12-20); Blood Urea Nitrogen 6 mg/dL (9-16); Calcium 8.3 mg/dL (8.4-10.2); Carbon Dioxide 24 mmol/L (22-29); Chloride 109 mmol/L (96-108); Creatinine Clr Calc Pharmacy 121.6; Estimated Glomerular Filt Rate > 60; Glucose Random 148 mg/dL (60-115); Potassium 3.6 mmol/L (3.3-5.1); Sodium 144 mmol/L (135-145)
[2024-07-20 17:40] LABS: Platelet Count 84 X10*3/uL (160-400)
[2024-07-20] MEDS: iohexoL 350 MG/ML 100 ML INFUS..BTL IV (17:46)
[2024-07-20 18:22] VITALS: BP 148/80; PULSE 100; RESP 20; TEMP 37; O2SAT 96
[2024-07-20] MEDS: Acetaminophen 325 MG TABLET 650 MG PO (19:27)
[2024-07-20 19:41] VITALS: BP 151/79; PULSE 90; RESP 17; TEMP 36.9; O2SAT 96
[2024-07-20 20:37] VITALS: BP 151/79; PULSE 90; RESP 17; TEMP 36.9; O2SAT 96
== END 2024-07-20 20:49 | disposition home or self-care (01) ==
PROVIDERS: Emergency Provider Emergency Medicine; PCP Internal Medicine
DX: S09.90XA Unspecified injury of head, initial encounter (principal); S20.219A Contusion of unspecified front wall of thorax, initial encounter; S30.1XXA Contusion of abdominal wall, initial encounter; S14.109A Unspecified injury at unspecified level of cervical spinal cord, initial encounter; W10.8XXA Fall (on) (from) other stairs and steps, initial encounter; Y93.89 Activity, other specified; Y92.9 Unspecified place or not applicable; Y99.9 Unspecified external cause status
CPT/HCPCS: 36415; 70450; 71260; 72125; 74177; 80048; 84484; 85025; 99284; Q9967

== ENCOUNTER 2024-08-09 11:41 | Outpatient (AMB) | payer OTHER, SELFPAY ==
--- NOTE | 2024-08-09 11:42 | A.OFFVIS_ITS ---
Vital Signs 08/09/24 11:44 Height 5 ft 9 in Weight 232 lb BMI 34.3 BP 130/62 Blood Pressure Location Lt brachial Position Sitting Respiration 16 Pulse 114 H Pulse Source Pulse Oximeter Pulse Oximetry (%) 96 Oxygen Delivery Method Room Air Intake Visit Reasons: severe back pain Allergies Penicillins [PENICILLINS] Allergy (Severe, Verified 08/09/24 11:45) HIVES trazodone Allergy (Intermediate, Verified 08/09/24 11:45) pruritus Medication List - Last Reconciled 08/09/24 by Mell Allred LPN pantoprazole 20 mg PO DAILY HPI HPI severe back pain: Details: Sujit is here for follow-up. He has been increasingly debilitated and was unable to keep his previous few appointments. Even today he almost cancel this appointment because he did not think he would be able to make it. His pain has been getting more and more severe. I informed him that I had a discussion with our neurosurgeon Dr. Rob and we went over his CT images. Given the location of his disc osteophyte complex that appears to be encroaching on the nerve root, he would not be a candidate to be operated on per Dr. Cantu. He is desperate for any kind of relief measures. [facility] Medical History Mass of right foot Acid reflux Impaired glucose tolerance Left sided sciatica Cirrhosis of liver Esophageal varices Screening for colon cancer Physical exam Lower back pain Surgical History History of esophagogastroduodenoscopy (EGD) Hx of colonoscopy History of right knee surgery History of myringotomy History of hand surgery History of left knee surgery Family History Father Cancer Mother Arthritis Cancer Sister In good health Daughter In good health Family/Other Substance use disorder Other History of hand surgery Social History Household Members: Family Household Members Other:: step mother Housing: House Alcohol intake: current Alcohol intake frequency: a few times a month Alcohol type: beer Patient Tobacco Use Status: Never used Tobacco e-Cigarette/Vaping Use: Never Used Second Hand Smoke Exposure: No service: Yes ([employer]) Current occupational status: disabled Cognitive needs: No Hearing needs: No Vision needs: Yes Physical Exam Vital Signs: Last Vital Signs Pulse 114 H 08/09/24 11:44 Resp 16 08/09/24 11:44 BP 130/62 08/09/24 11:44 Pulse Ox 96 08/09/24 11:44 Oxygen Delivery Method Room Air 08/09/24 11:44 BMI result Body Mass Index 34.3 On exam today: Antalgic gait. Appears afebrile. Alert and oriented. Mood and affect appropriate. Follows and participates in conversation appropriately. Respiratory effort is unlabored. Able to transition from sit to stand unassisted. Quality Reporting (2019) Adult ([facility] ) Smoking risk assessment performed?: Yes Patient Tobacco Use Status: Never used Tobacco Assessment & Plan Assessment & Plan (1) Lumbar radicular pain: Code(s): M54.16 - Radiculopathy, lumbar region Category: Medical Plan After going over his treatment options we agreed to proceed with a left selective nerve root block L5 for temporary relief while we explore potential surgical options. Per patient request, I will place a referral to [facility] to see if they might be able to target and intervene upon the lesion that appears to be the source of his symptoms. Patient expressed understanding and is in agreement with the plan. Orders: Referrals Neurosurgery Referral M54.16 - Radiculopathy, lumbar region Coding Level of Care Code Est Pt Level 4 (12302) Diagnoses Lumbar radicular pain M54.16
[2024-08-09 11:44] VITALS: BP 130/62; PULSE 114; RESP 16; O2SAT 96; BMI 34.3
== END 2024-08-09 11:54 | disposition home or self-care (01) ==
PROVIDERS: PCP Internal Medicine; Visit Provider Internal Medicine
DX: M54.16 Radiculopathy, lumbar region (principal)
CPT/HCPCS: 99214

== ENCOUNTER → 2024-08-09 11:41 | Outpatient (BNVA) | payer OTHER, SELFPAY | PROVIDERS: PCP Internal Medicine; Visit Provider Internal Medicine ==

== ENCOUNTER 2024-09-05 06:33 | Outpatient (REF) | payer OTHER, SELFPAY ==
--- NOTE | ~2024-09-05 | FL_ITS ---
EXAMINATION: FL GUIDANCE ONLY HISTORY: M54.16 - Radiculopathy, lumbar region COMPARISON: None available. TECHNIQUE: Fluoroscopy time: 0.5 minutes. Cumulative Dose: 12.7 mGy. DAP: 0.136 uGy-m2 (microgray-meter squared). Images: 3. FINDINGS: Images demonstrate a needle and contrast in the region of the left L5-S1 facet joint. FL/FL guidance in treatment room IMPRESSION: Fluoroscopy during procedure. Please see procedure report for additional information. Electronically signed by: Bryson Garrido MD 09/05/2024 12:55 PM EST
--- OUTSIDE RECORDS SUMMARY | 2024-09-05 06:35 | XMS_ITS | Clinical Summary ---
Author Organization [facility] Address [address] [place] [address] Care Team Providers Care Synchronous Motor Assembler Name Role Phone Unavailable Primary Care Provider Unavailabl e Social History Tobacco Use Types Packs/Day Years Used Date Smoking Tobacco: Never Assessed Sex and Gender Information Value Date Recorded Sex Assigned at Not on file Legal Sex Male 10:30 AM EDT Gender Identity Not on file Sexual Orientation Not on file Plan of Treatment Health Maintenance Due Date Last Done Comments Hepatitis C Screening 1965 DTaP/Tdap/Td (1 - Tdap) 1981 Pneumococcal 50+ years (1 of 1 - PCV) 2013 Zoster (Shingrix) (1 of 2) 2013 COVID-19 Vaccine ( - 2023-2 5 season) 2024 Influenza (#1) 2024 RSV (1 - 1-dose 75+ series) 2038 HPV Vaccine Aged Out No longer eligi ble based on patient's age to complete this topic Hep A Aged Out No longer eligi ble based on patient's age to complete this topic Hep B Aged Out No longer eligi ble based on patient's age to complete this topic Hib Aged Out No longer eligi ble based on patient's age to complete this topic Meningococcal ACWY Aged Out No longer eligible based on patient's age to complete this topic Zoster (Zostavax) Discontinued
== END 2024-09-05 06:34 | disposition home or self-care (01) ==
LOC: CF 06:33
PROVIDERS: Visit Provider Internal Medicine
DX: M54.16 Radiculopathy, lumbar region (principal)
CPT/HCPCS: 64483; J1100; J2003; J2795; Q9967

== ENCOUNTER 2024-09-05 11:19 | Outpatient (AMB) | payer OTHER, SELFPAY ==
[2024-09-05 11:29] VITALS: BP 143/68; PULSE 78; O2SAT 98; BMI 32.9
--- NOTE | 2024-09-05 11:29 | A.OFFVIS_ITS ---
Vital Signs 09/05/24 11:29 Height 5 ft 9 in Weight 223 lb BMI 32.9 BP 143/68 H Blood Pressure Location Lt brachial Position Sitting Pulse 78 Pulse Source Pulse Oximeter Pulse Oximetry (%) 98 Oxygen Delivery Method Room Air Intake Visit Reasons: Left L5 SNRB Supervisor Unloading Required: No Allergies Penicillins [PENICILLINS] Allergy (Severe, Verified 09/05/24 11:30) HIVES trazodone Allergy (Intermediate, Verified 09/05/24 11:30) pruritus Medication List - Last Reconciled 09/05/24 by Roslyn Zhao, INSIDE SALES ACCOUNT MANAGER pantoprazole 20 mg PO DAILY HPI HPI Left L5 SNRB: Details: Patient presents for scheduled procedure. Denies any recent cough, cold, infection, fever or other significant changes in medical history since last office visit. [facility] Medical History Mass of right foot Acid reflux Impaired glucose tolerance Left sided sciatica Cirrhosis of liver Esophageal varices Screening for colon cancer Physical exam Lower back pain Surgical History History of esophagogastroduodenoscopy (EGD) Hx of colonoscopy History of right knee surgery History of myringotomy History of hand surgery History of left knee surgery Family History Father Cancer Mother Arthritis Cancer Sister In good health Daughter In good health Family/Other Substance use disorder Other History of hand surgery Social History Household Members: Family Household Members Other:: step mother Housing: House Alcohol intake: current Alcohol intake frequency: a few times a month Alcohol type: beer Patient Tobacco Use Status: Never used Tobacco e-Cigarette/Vaping Use: Never Used Second Hand Smoke Exposure: No service: Yes ([employer]) Current occupational status: disabled Cognitive needs: No Hearing needs: No Vision needs: Yes Physical Exam Vital Signs: Last Vital Signs Pulse 78 09/05/24 11:29 BP 143/68 H 09/05/24 11:29 Pulse Ox 98 09/05/24 11:29 Oxygen Delivery Method Room Air 09/05/24 11:29 BMI result Body Mass Index 32.9 Office Procedures Details: Selective nerve root block, left L5-S1 After obtaining written consent, pre-procedure blood pressure and heart rate were stable and recorded in the nursing record. The patient was placed in the prone position on the fluoroscopy table. The lumbosacral area was prepped with chloraprep, allowed to dry and draped in sterile fashion. Using fluoroscopy, the skin overlying our target was anesthet ized with 0.5% lidocaine. A 22 gauge 3.5 inch spinal needle was advanced to the inferior segment of the left L5 foramen until contact with left L5-S1 disc osteophyte. No paresthesias were elicited with needle placement and aspiration was negative for blood and CSF. Correct needle position was confirmed with approximately 1 ml contrast dye (Omnipaque 180 mg/ml) injected under real-time fluoroscopy. No evidence of vascular or intrathecal uptake was seen and there was both epidural and peripheral spread of the contrast agent. 10 mg dexamethasone plus 1 ml containing 0.5% lidocaine was slowly injected. The needle was flushed and removed. the same procedure was repeated for the remaining levels. The skin was cleansed and a sterile bandages were applied. The patient tolerated the procedure well and no complications were encountered. Following the procedure the patient's vital signs were stable. The patient was discharged home in good condition with post-procedural instructions. Time Out: Immediately prior to the procedure, the following was verbally confirmed that there is a signed consent form and that the correct patient, planned procedure, site and side are consistent with documentation and that necessary equipment and/or blood products are available prior to the start of the case. Complications: none EBL: <5 cc 13289 - Lumbar/Sacral Procedure code (CPT) selection complete Quality Reporting (2019) Adult ([facility] ) Smoking risk assessment performed?: Yes Patient Tobacco Use Status: Never used Tobacco Assessment & Plan Assessment & Plan (1) Lumbar radicular pain: Code(s): M54.16 - Radiculopathy, lumbar region Category: Medical Plan Patient is status post left L5-S1 selective nerve root block. Patient tolerated procedure well and was discharged home in stable condition with discharge instructions. All questions were answered. We will follow-up via telephone or in clinic to assess response to therapy. A follow-up appointment was made during today's visit. Orders: Orders FL guidance in treatment room Today M54.16 - Radiculopathy, lumbar region Coding Level of Care Code Procedure Only Diagnoses Lumbar radicular pain M54.16 CPT Codes Transforaminal Epidural Steroid Inj - TESI 3: 02170 - Lumbar/Sacral ([id number])
--- OUTSIDE RECORDS SUMMARY | 2024-09-05 15:10 | XMS_ITS | Clinical Summary ---
Author Organization [facility] Address [address] [place] [address] Care Team Providers Care Residential Sales Name Role Phone Unavailable Primary Care Provider [...]
== END 2024-09-05 11:53 | disposition home or self-care (01) ==
LOC: HO.PMCPRC 11:19
PROVIDERS: PCP Internal Medicine; Visit Provider Internal Medicine
DX: M54.16 Radiculopathy, lumbar region (principal)
CPT/HCPCS: 64483

== ENCOUNTER 2024-09-27 09:40 | Outpatient (AMB) | payer OTHER, SELFPAY ==
--- NOTE | 2024-09-27 09:42 | MHC.OFFVIS ---
Vital Signs 09/27/24 09:43 Height 5 ft 9 in Weight 225 lb BMI 33.2 BP 170/76 H Blood Pressure Location Lt brachial Position Sitting Respiration 16 Pulse 104 H Pulse Source Pulse Oximeter Pulse Oximetry (%) 98 Oxygen Delivery Method Room Air Intake Visit Reasons: s/p left L5 SNRB Diamond Finishing Supervisor Required: No Allergies Penicillins [PENICILLINS] Allergy (Severe, Verified 09/27/24 09:45) HIVES trazodone Allergy (Intermediate, Verified 09/27/24 09:45) pruritus Medication List - Last Reconciled 09/27/24 by Mell Allred LPN pantoprazole 20 mg PO DAILY HPI HPI s/p left L5 SNRB: Details: History of Present Illness The patient is a 59-year-old male presenting with chronic low back pain and left L5-S1 radicular symptoms. He reports a history of selective nerve root block which gave temporary relief for about two weeks, after which symptoms re-emerged. The pain affects the lower back and radiates to the left hip and ankle. Management so far included topical analgesics, and there are insurance complications delaying surgical consultations. Continued functional impairment and obstacles to accessing further neurosurgical opinions highlight the challenges in achieving comprehensive management. Pain Description - Onset: Started years ago, progressively worsening. - Quality/Character: Persistent, radiating pain. - Location: Lower back, left hip, left ankle. - Radiation: From the lower back down the left side. - Exacerbating Factors: Lack of effective insurance coverage affecting surgical referrals. - Relieving Factors: Temporary relief with selective nerve root block, symptomatic relief with topical analgesics. - Impact on Activities: Difficulty in activities requiring back strength, like snow shoveling. Physical Exam Appears afebrile. Alert and oriented. Mood and affect appropriate. Follows and participates in conversation appropriately. Respiratory effort is unlabored. Able to transition from sit to stand unassisted. Results Pain Management - Affect: Frustration due to insurance-related access issues. - Analgesia: Achieved temporary relief with previous L5-S1 nerve root block and symptomatic management with [employer]. - Activities of Daily Living: Pain interferes with physically demanding activities such as shoveling snow. - Aberrant Drug-Related Behaviors: None reported or observed. [facility] Medical History Mass of right foot Acid reflux Impaired glucose tolerance Left sided sciatica Cirrhosis of liver Esophageal varices Screening for colon cancer Physical exam Lower back pain Surgical History History of esophagogastroduodenoscopy (EGD) Hx of colonoscopy History of right knee surgery History of myringotomy History of hand surgery History of left knee surgery Family History Father Cancer Mother Arthritis Cancer Sister In good health Daughter In good health Family/Other Substance use disorder Other History of hand surgery Social History Household Members: Family Household Members Other:: step mother Housing: House Alcohol intake: current Alcohol intake frequency: a few times a month Alcohol type: beer Patient Tobacco Use Status: Never used Tobacco e-Cigarette/Vaping Use: Never Used Second Hand Smoke Exposure: No service: Yes ([employer]) Current occupational status: disabled Cognitive needs: No Hearing needs: No Vision needs: Yes Physical Exam Vital Signs: Last Vital Signs Pulse 104 H 09/27/24 09:43 Resp 16 09/27/24 09:43 BP 170/76 H 09/27/24 09:43 Pulse Ox 98 09/27/24 09:43 Oxygen Delivery Method Room Air 09/27/24 09:43 BMI result Body Mass Index 33.2 Quality Reporting (2020) Adult ([facility] 138/09/28/68) Smoking risk assessment performed?: Yes Patient Tobacco Use Status: Never used Tobacco Assessment & Plan Assessment & Plan (1) Lumbar radicular pain: Code(s): M54.16 - Radiculopathy, lumbar region Category: Medical Plan Plan Chronic low back pain and radicular symptoms persisting after temporary relief from previous L5-S1 nerve root block; plan to repeat block in one month's time. Patient was informed and verbally consented to the use of an ambient scribe for clinic note documentation during this visit. Discussion Notes I discussed the patient's chronic pain situation and management options, explaining the limited relief from the past nerve root block and the plan to perform another block. I addressed the need for surgical consultation, advising the patient to contact [facility] regarding insurance acceptance and potential surgical options. I clarified the importance of dealing with insurance-related barriers to better access surgical evaluation. Patient Instructions - Plan for a repeat left L5-S1 selective nerve root block in one month's time. - Contact [facility] for information on surgical options and confirm insurance acceptance. - Continue using topical analgesics as needed for symptom relief. Coding Level of Care Code Est Pt Level 3 (56321) Diagnoses Lumbar radicular pain M54.16
[2024-09-27 09:43] VITALS: BP 170/76; PULSE 104; RESP 16; O2SAT 98; BMI 33.2
--- OUTSIDE RECORDS SUMMARY | 2024-09-27 10:14 | XMS_ITS | Clinical Summary ---
Author Organization [facility] Address [address] [place] [address] Care Team Providers Care Media Specialist Name Role Phone Unavailable Primary Care Provider [...]
== END 2024-09-27 09:56 | disposition home or self-care (01) ==
PROVIDERS: PCP Internal Medicine; Visit Provider Internal Medicine
DX: M54.16 Radiculopathy, lumbar region (principal)
CPT/HCPCS: 99213

== ENCOUNTER → 2024-09-27 09:40 | Outpatient (BNVA) | payer OTHER, SELFPAY | PROVIDERS: PCP Internal Medicine; Visit Provider Internal Medicine ==

== ENCOUNTER 2024-11-28 06:15 | Outpatient (REF) | payer OTHER, SELFPAY ==
--- NOTE | ~2024-11-28 | FL_ITS ---
EXAMINATION: FL GUIDANCE ONLY HISTORY: M54.16 - Radiculopathy, lumbar region COMPARISON: None available. TECHNIQUE: Fluoroscopy time: 0.2 minutes. Cumulative Dose: 5.26 mGy. DAP: 0.0345 mGym2 Images: 2. FINDINGS: Images demonstrate a needle and contrast material in the region of the left L5-S1 facet joint. FL/FL guidance in treatment room IMPRESSION: Fluoroscopy during procedure. Please see procedure report for additional information. Electronically signed by: Bryson Garrido MD 11/29/2024 11:07 AM EDT
--- OUTSIDE RECORDS SUMMARY | 2024-11-28 06:18 | XMS_ITS | Clinical Summary ---
Author Organization [facility] Address [address] [place] [address] Care Team Providers Care Home Care Manager Rn Name Role Phone Unavailable Primary Care Provider [...]
== END 2024-11-28 06:16 | disposition home or self-care (01) ==
LOC: CF 06:15
PROVIDERS: Visit Provider Internal Medicine
DX: M54.16 Radiculopathy, lumbar region (principal)
CPT/HCPCS: 64483; J1100; J2003; Q9967

== ENCOUNTER 2024-11-28 10:03 | Outpatient (AMB) | payer OTHER, SELFPAY ==
[2024-11-28 10:11] VITALS: BP 130/68; PULSE 91; RESP 16; O2SAT 96
--- NOTE | 2024-11-28 10:11 | MHC.OFFVIS ---
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 Denies any recent cough, cold, infection, fever or other significant changes in medical history since last office visit. [facility] Medical History Mass of right foot Acid reflux Impaired glucose tolerance Left sided sciatica Cirrhosis of liver Esophageal varices Screening for colon cancer Physical exam Lower back pain Surgical History History of esophagogastroduodenoscopy (EGD) Hx of colonoscopy History of right knee surgery History of myringotomy History of hand surgery History of left knee surgery Family History Father Cancer Mother Arthritis Cancer Sister In good health Daughter In good health Family/Other Substance use disorder Other History of hand surgery Social History Household Members: Family Household Members Other:: step mother Housing: House Alcohol intake: current Alcohol intake frequency: a few times a month Alcohol type: beer Patient Tobacco Use Status: Never used Tobacco e-Cigarette/Vaping Use: Never Used Second Hand Smoke Exposure: No service: Yes ([employer]) Current occupational status: disabled Cognitive needs: No Hearing needs: No Vision needs: Yes Physical Exam Vital Signs: Last Vital Signs Pulse 91 11/28/24 10:11 Resp 16 11/28/24 10:11 BP 130/68 11/28/24 10:11 Pulse Ox 96 11/28/24 10:11 Oxygen Delivery Method Room Air 11/28/24 10:11 Office Procedures Details: Selective nerve root block, left L5-S1 After obtaining written consent, pre-procedure blood pressure and heart rate were stable and recorded in the nursing record. The patient was placed in the prone position on the fluoroscopy table. The lumbosacral area was prepped with chloraprep, allowed to dry and draped in sterile fashion. Using fluoroscopy, the skin overlying our target was anesthetized with 0.5% lidocaine. A 22 gauge 3.5 inch spinal needle was advanced to the inferior segment of the left L5 foramen until contact with left L5-S1 disc osteophyte. No paresthesias were elicited with needle placement and aspiration was negative for blood and CSF. Correct needle position was confirmed with approximately 1 ml contrast dye (Omnipaque 180 mg/ml) injected under real-time fluoroscopy. No evidence of vascular or intrathecal uptake was seen and there was both epidural and peripheral spread of the contrast agent. 8 mL of normal saline was injected with the goal of potentially had her dissecting the nerve root from the disc osteophyte. Then, 10 mg dexamethasone plus 1 ml containing 0.5% lidocaine was slowly injected. The needle was flushed and removed. The skin was cleansed and a sterile bandages were applied. The patient tolerated the procedure well and no complications were encountered. Following the procedure the patient's vital signs were stable. The patient was discharged home in good condition with post-procedural instructions. Time Out: Immediately prior to the procedure, the following was verbally confirmed that there is a signed consent form and that the correct patient, planned procedure, site and side are consistent with documentation and that necessary equipment and/or blood products are available prior to the start of the case. Complications: none EBL: <5 cc 85450 - Lumbar/Sacral Procedure code (CPT) selection complete Assessment & Plan Assessment & Plan (1) Lumbar radicular pain: Code(s): M54.16 - Radiculopathy, lumbar region Category: Medical Plan Patient is status post left L5-S1 selective nerve root block. Patient tolerated procedure well and was discharged home in stable condition with discharge instructions. All questions were answered. We will follow-up via telephone or in clinic to assess response to therapy. A follow-up appointment was made during today's visit. Orders: Orders FL guidance in treatment room Today M54.16 - Radiculopathy, lumbar region Coding Level of Care Code Procedure Only Diagnoses Lumbar radicular pain M54.16 CPT Codes Transforaminal Epidural Steroid Inj - TESI 3: 27223 - Lumbar/Sacral ([id number])
[2024-11-28 10:42] VITALS: BP 136/62; PULSE 80; RESP 16; O2SAT 93
--- OUTSIDE RECORDS SUMMARY | 2024-11-28 11:28 | XMS_ITS | Clinical Summary ---
Author Organization [facility] Address [address] [place] [address] Care Team Providers Care Citrix Systems Administrator Name Role Phone Unavailable Primary Care Provider [...]
== END 2024-11-28 10:43 | disposition home or self-care (01) ==
LOC: HO.PMCPRC 10:03
PROVIDERS: PCP Internal Medicine; Visit Provider Internal Medicine
DX: M54.16 Radiculopathy, lumbar region (principal)
CPT/HCPCS: 64483

== ENCOUNTER 2025-03-14 12:39 | Outpatient (AMB) | payer OTHER, SELFPAY ==
--- NOTE | 2025-03-14 12:40 | A.OFFVIS_ITS ---
Intake Visit Reasons: s/p Left L5 SNRB 11/28/24 Allergies Penicillins (PENICILLINS) Allergy (Severe, Verified 11/28/24 10:12) HIVES trazodone Allergy (Intermediate, Verified 11/28/24 10:12) pruritus HPI HPI s/p Left L5 SNRB 11/28/24: Details: History of Present Illness The patient is a 59-year-old male presenting with chronic back pain. The patient reports a history of chronic back pain, which has been persistent and required previous interventions. He has undergone injections in the past, which provided relief for approximately four months. The pain has now returned and >6/10, constant, prompting consideration for another injection. The patient has also made lifestyle changes, including a weight loss of 22 pounds, in an effort to alleviate the pain. He acknowledges that further weight loss is needed, with a goal of losing an additional 50 pounds. Pain Description - Chronic back pain with previous relief from injections lasting four months - Pain has returned, considering another injection Physical Exam - TV Results Pain Management - Analgesia: Previous injections provided four months of relief - Activities of Daily Living: Weight loss of 22 pounds achieved to help manage pain [facility] Medical History Mass of right foot Acid reflux Impaired glucose tolerance Left sided sciatica Cirrhosis of liver Esophageal varices Screening for colon cancer Physical exam Lower back pain Surgical History History of esophagogastroduodenoscopy (EGD) Hx of colonoscopy History of right knee surgery History of myringotomy History of hand surgery History of left knee surgery Family History Father Cancer Mother Arthritis Cancer Sister In good health Daughter In good health Family/Other Substance use disorder Other History of hand surgery Social History Household Members: Family Household Members Other:: step mother Housing: House Alcohol intake: current Alcohol intake frequency: a few times a month Alcohol type: beer Patient Tobacco Use Status: Never used Tobacco e-Cigarette/Vaping Use: Never Used Second Hand Smoke Exposure: No service: Yes ([employer]) Current occupational status: disabled Cognitive needs: No Hearing needs: No Vision needs: Yes Telehealth Telehealth Telehealth Platform: [email or web address] Location of provider rendering services: practice address Location of patient: address on file Patient Identification confirmed using: Name, : Yes Telehealth method: video Patient verbally consented to treatment: Yes Patient verbally consented to billing insurance company: Yes Patient informed of any privacy concerns related to visit: Yes Assessment & Plan Assessment & Plan (1) Lumbar radicular pain: Code(s): M54.16 - Radiculopathy, lumbar region Category: Medical Plan Plan - Schedule repeat left L5 SNRB injection for pain relief as previous injection was effective >75% for four months. Patient was informed and verbally consented to the use of an ambient scribe for clinic note documentation during this visit. Discussion Notes I discussed with the patient the option of scheduling another injection for pain relief, as the previous injection provided four months of relief. Patient Instructions - Schedule an appointment for another injection to manage back pain. Coding Level of Care Code Tele Est Pt Level 3 (99252) Diagnoses Lumbar radicular pain M54.16
--- OUTSIDE RECORDS SUMMARY | 2025-03-14 12:41 | XMS_ITS | Clinical Summary ---
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
== END 2025-03-14 12:40 | disposition home or self-care (01) ==
LOC: HO.PMC 12:39
PROVIDERS: PCP Internal Medicine; Visit Provider Internal Medicine
DX: M54.16 Radiculopathy, lumbar region (principal)
CPT/HCPCS: 99213

== ENCOUNTER 2025-03-25 14:47 | Outpatient (AMB) | payer OTHER, SELFPAY ==
[2025-03-25 14:58] VITALS: BMI 37.7
--- NOTE | 2025-03-25 14:58 | MHC.OFFVIS ---
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 States pain started 1 month ago after falling down his basement stairs and has not improved. Pain is mainly on around his wrist. Denies numbness, tingling or locking of any finger. His hand is swollen and is not able to make a full close fist. States he was seen at [facility] for his head and felt pain in wrist days later while at home. 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 He says he fell down his basement stairs ~1 month ago. He was seen at [facility] for a head evaluation but denies having his wrist seen as he did not initially have pain. He complains of pain in his right hand & wrist, which has not improved over the last month. He says his hand is stiff & swollen and he cannot make a full fist. He denies any numbness, tingling, locking, or catching He says he does not remember when he injured himself, but says it was more than 3 weeks ago. [facility] radiographs from 01/29/25 show a healing right 3rd metacarpal fracture but no reports of the distal radius or distal ulna fractures. We can see a note of his admission to [facility] from 01/12-01/15 for ETOH withdrawal and a fall downstairs. No wrist X-rays done at that time. The best that I can tell, this right wrist fracture did not occur during the month of January or related to these admissions and/or visits at [facility]. He says he lives with his step-mother and tries to take care of her at home. [facility] Medical History Mass of right foot Acid reflux Impaired glucose tolerance Left sided sciatica Cirrhosis of liver Esophageal varices Screening for colon cancer Physical exam Lower back pain Surgical History History of esophagogastroduodenoscopy (EGD) Hx of colonoscopy History of right knee surgery History of myringotomy History of hand surgery History of left knee surgery Family History Father Cancer Mother Arthritis Cancer Sister In good health Daughter In good health Family/Other Substance use disorder Other History of hand surgery Social History (Updated 03/25/25 @ 15:11 by BRYN Dunaway) Household Members: Family Household Members Other:: step mother Housing: House Alcohol intake: current Alcohol intake frequency: a few times a month Alcohol type: beer Patient Tobacco Use Status: Never used Tobacco e-Cigarette/Vaping Use: Never Used Second Hand Smoke Exposure: No service: Yes ([employer]) Current occupational status: disabled 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 Cognitive needs: No Hearing needs: No Vision needs: Yes Review of Systems Const All systems reviewed & are unremarkable except as noted in HPI and below Physical Exam Vital Signs: BMI result Body Mass Index 37.7 Const General: cooperative, healthy appearing and no acute distress Orientation/consciousness: patient oriented x3 HEENT Head: Yes normocephalic and Yes atraumatic Eyes EOM: EOMs intact bilaterally Resp Effort & Inspection: normal respiratory effort and able to speak in complete sentences Cardio Jugular venous distension: no JVD Skin General skin exam: turgor normal Rashes: no rashes Neuro General: patient oriented x3 Extrem Other: Evaluation of Right Upper Extremity: The patient is alert, oriented, and in no acute distress Neuro: Median, Ulnar, Radial nerves motor and sensory intact and sensation is normal to the tips of all digits Vascular: Cap refill brisk ROM: Skin: No lacerations or abrasions. General: No Ecchymosis. No Erythema or evidence of infection. Swelling in his hand & fingers outside of his brace Most tender over the distal radius & distal ulna Tender over the snuffbox & scaphoid tubercle Radiographs: 3 views of the right hand were taken and viewed by me today in clinic. They show a transverse distal radius fracture, he has some impaction with shortening of the distal radius, and is at roughly neutral on the lateral view, with some evidence of interval bony healing. He also has a distal ulna fracture with some evidence of interval bony healing. There is also a 3rd metacarpal shaft fracture that appears healed. 3 views of the right wrist & Scaphoid view of the right wrist was taken & viewed by me today in clinic. They show a transverse metaphyseal distal radius fracture with ~5mm shortening compared to distal ulna and early evidence of interval bony healing. There is also a distal ulna fracture with early evidence of interval bony healing. he saavedra ~2 degrees dorsal tilt seen on the lateral view. There are some osteolucencies in the distal aspect of the scaphoid, worrisome for a possible nondisplaced scaphoid waist fracture Psych Appearance: grossly normal Affect: normal affect Attitude: cooperative Office Procedures AMB Fracture Care Details: Fracture care 71456 distal radius fracture Fracture Billing Code: Fracture Billing Code Assessment & Plan Assessment & Plan (1) Fracture of right distal radius: Code(s): S52.501A - Unspecified fracture of the lower end of right radius, initial encounter for closed fracture Category: Medical (2) Right distal ulnar fracture: Code(s): S52.601A - Unspecified fracture of lower end of right ulna, initial encounter for closed fracture Category: Medical (3) Fracture of scaphoid of right wrist: Code(s): S62.001A - Unspecified fracture of navicular [scaphoid] bone of right wrist, initial encounter for closed fracture Category: Medical (4) Alcohol use disorder: Code(s): F10.90 - Alcohol use, unspecified, uncomplicated Category: Medical Plan Assessment & Plan: 1. Right distal radius fracture, transverse From a fall, DOI unknown but suspected ~03/04/2025 First seen for this injury here on 03/25/25 2. Right distal ulna fracture, From a fall, DOI unknown but suspected ~03/04/2025 First seen for this injury here on 03/25/25 3. Right possible scaphoid waist fracture at the distal third With snuffbox tenderness From a fall, DOI unknown but suspected ~03/04/2025 First seen for this injury here on 03/25/25 I educated him about these conditions I discussed operative and non-operative treatment options [facility] radiograph report from 01/29/25 show a healing right 3rd metacarpal fracture but no mention of the distal radius or distal ulna fractures. Unfortunately, our patient does not recall when he may have broken his right wrist. It does not appear that he broke his wrist prior to his admission to [facility] in early January for ETOH withdrawal, or before the radiographs on January 29. Given that he is still fairly swollen and quite tender, and that we are already seeing some evidence of interval bony healing, I would estimate that this fracture occurred approximately 3 weeks ago. Given the length of time between his injury and being seen for treatment, we will manage this conservatively. He was placed in a short arm thumb spica cast I discussed activity modification, he is to lift nothing heavier than a cellphone at this time He will work on gentle finger ROM exercises at home He says that he is not a smoker. I explained it can take another 8-12 weeks for full bony healing He will follow up in 4 weeks with X-rays, 3V R wrist + scaphoid, OOP. If we are still concerned about a scaphoid fracture then anticipate placement in a new cast for another 4 weeks. 4. Right 3rd metacarpal fracture Presumably From a fall down stairs ~01/13/25 Seen healing on radiographs from [facility] on 01/29/25 This appears to have healed well. Please note that greater than 40 minutes was spent with this patient going over the history, evaluating the patient and radiographs, formulating possible treatment options, discussing them with the patient, and documenting the visit. Scribed for Mariely Blankenship MD by James Gomez, biomedical repair technician, on 03/25/25 at 3:30 PM, EST. Orders: Orders XR hand RT min 3V Today M79.641 - Pain in right hand XR wrist RT w scaphoid Today M25.531 - Pain in right wrist Coding Level of Care Code New Pt Level 4 (37499) Diagnoses Fracture of right distal radius S52.501A Right distal ulnar fracture S52.601A Fracture of scaphoid of right wrist S62.001A Alcohol use disorder F10.90 CPT Codes Fracture Care - Fracture Billing Code: Fracture Billing Code ([id number])
--- OUTSIDE RECORDS SUMMARY | 2025-03-25 16:10 | XMS_ITS | Clinical Summary ---
Author Organization [facility] Address [address] [place] [address] Care Team Providers Care Deaf Interpreter Name Role Phone Unavailable Primary Care Provider [...]
== END 2025-03-25 16:17 | disposition home or self-care (01) ==
LOC: HO.HOS 14:48
PROVIDERS: PCP Internal Medicine; Visit Provider Orthopaedic Surgery
DX: S52.501A Unspecified fracture of the lower end of right radius, initial encounter for closed fracture (principal); S52.601A Unspecified fracture of lower end of right ulna, initial encounter for closed fracture; S62.001A Unspecified fracture of navicular [scaphoid] bone of right wrist, initial encounter for closed fracture; F10.90 Alcohol use, unspecified, uncomplicated
CPT/HCPCS: 25600; 99204

== ENCOUNTER → 2025-03-25 14:52 | Outpatient (BNV) | payer OTHER, SELFPAY | PROVIDERS: Visit Provider Radiology Diagnostic Radiology | DX: S52.501D Unspecified fracture of the lower end of right radius, subsequent encounter for closed fracture with routine healing (principal) | CPT/HCPCS: 73110; 73130 ==

== ENCOUNTER 2025-03-25 15:31 | Outpatient (REF) | payer OTHER, SELFPAY ==
--- NOTE | ~2025-03-25 | XR_ITS ---
EXAMINATION: XR HAND, RIGHT CLINICAL INFORMATION: M79.641 - Pain in right hand COMPARISON: None available. TECHNIQUE: PA, lateral, and oblique views of the right hand. FINDINGS: There is mild asymmetric narrowing of DIP joints with marginal osteophytes. There is also involvement of the MCP and IP joints of the thumb. There are marginal osteophytes involving the PIP joints of the fourth and fifth digits. There is callus formation and periosteal thickening involving the third metacarpal consistent with healing or healed fracture through the middle diaphysis. There is also a healing impaction fracture of the distal radial metaphysis and ulnar metaphysis and ulnar styloid base. With a posttraumatic ulnar plus variance measures 5 mm. There is mild flattening and sclerosis of the ulnar side of the lunate. XR/XR hand RT min 3V IMPRESSION: Healing impacted fracture of distal radius and ulnar styloid fracture. Healing fracture through the middle diaphysis of third metacarpal. Posttraumatic ulnar plus variance likely resulting in ulnar lunate impaction. Mild osteoarthritis. Electronically signed by: Ifeanyi Bo MD 03/25/2025 03:13 PM EDT
--- NOTE | ~2025-03-25 | XR_ITS ---
EXAMINATION: XR WRIST NAVICULAR RIGHT HISTORY: M25.531 - Pain in right wrist COMPARISON: There are no prior studies available for comparison. FINDINGS: Four views of the right wrist including a scaphoid view are submitted. Osseous mineralization is normal. There is a healing comminuted intra-articular fracture of the distal radius. There is also a healing minimally displaced fracture of the ulnar styloid. There is a chronic appearing deformity of the midshaft of the 3rd metacarpal. The joint spaces are preserved. There is diffuse soft tissue swelling. XR/XR wrist RT w scaphoid IMPRESSION: Healing comminuted intra-articular fracture of the distal radius and healing fracture of the distal ulna. Electronically signed by: Bryson Garrido MD 03/25/2025 03:56 PM EDT
== END 2025-03-25 15:32 | disposition home or self-care (01) ==
LOC: HO.HOSX 15:31
PROVIDERS: Visit Provider Orthopaedic Surgery
DX: S52.571D Other intraarticular fracture of lower end of right radius, subsequent encounter for closed fracture with routine healing (principal); S52.611D Displaced fracture of right ulna styloid process, subsequent encounter for closed fracture with routine healing; S62.001D Unspecified fracture of navicular [scaphoid] bone of right wrist, subsequent encounter for fracture with routine healing; F10.10 Alcohol abuse, uncomplicated; M25.531 Pain in right wrist; M79.641 Pain in right hand; W10.8XXD Fall (on) (from) other stairs and steps, subsequent encounter
CPT/HCPCS: 25600; 73110; 73130

== ENCOUNTER 2025-04-10 06:34 | Outpatient (REF) | payer OTHER, SELFPAY ==
--- NOTE | ~2025-04-10 | FL_ITS ---
EXAMINATION: XR FLUOROSCOPY WITH IMAGES CLINICAL INFORMATION: Radiculopathy, lumbar region. Lumbar pain management. COMPARISON: None available. TECHNIQUE: Fluoroscopy provided to: Dr. Lua Fluoroscopy time: 0.3 minutes DAP: 0.0576 mGycm2 Images: 3 FINDINGS: 3 fluoroscopic spot images of the lumbar spine taken during pain management procedure. Please refer to the full operative report for details. FL/FL guidance in treatment room IMPRESSION: Fluoroscopic guidance. Electronically signed by: Neil Ruiz MD 04/10/2025 02:32 PM EDT
--- OUTSIDE RECORDS SUMMARY | 2025-04-10 06:41 | XMS_ITS | Clinical Summary ---
Author Organization [facility] Address [address] [place] [address] Care Team Providers Care Relay Motorman Name Role Phone Unavailable Primary Care Provider [...] COVID-19 Vaccine ( - 2023-2 5 season) 2025 Influenza (#1) 2025 RSV (1 - 1-dose [...]
== END 2025-04-10 06:35 | disposition home or self-care (01) ==
LOC: CF 06:34
PROVIDERS: Visit Provider Internal Medicine
DX: M54.16 Radiculopathy, lumbar region (principal); Z79.899 Other long term (current) drug therapy
CPT/HCPCS: 64483; J1100; J2003; Q9967

== ENCOUNTER 2025-04-10 12:26 | Outpatient (AMB) | payer OTHER, SELFPAY ==
--- NOTE | 2025-04-10 12:48 | A.OFFVIS_ITS ---
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 Denies any recent cough, cold, infection, fever or other significant changes in medical history since last office visit. [facility] Medical History Mass of right foot Acid reflux Impaired glucose tolerance Left sided sciatica Cirrhosis of liver Esophageal varices Screening for colon cancer Physical exam Lower back pain Surgical History History of esophagogastroduodenoscopy (EGD) Hx of colonoscopy History of right knee surgery History of myringotomy History of hand surgery History of left knee surgery Family History Father Cancer Mother Arthritis Cancer Sister In good health Daughter In good health Family/Other Substance use disorder Other History of hand surgery Social History (Updated 03/25/25 @ 15:11 by BRYN Dunaway) Household Members: Family Household Members Other:: step mother Housing: House Alcohol intake: current Alcohol intake frequency: a few times a month Alcohol type: beer Patient Tobacco Use Status: Never used Tobacco e-Cigarette/Vaping Use: Never Used Second Hand Smoke Exposure: No service: Yes ([employer]) Current occupational status: disabled 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 The patient was placed in the prone position on the fluoroscopy table. The lumbosacral area was prepped with chloraprep, allowed to dry and draped in sterile fashion. Using fluoroscopy, the skin overlying our target was anesthetized with 0.5% lidocaine. A 22 gauge 3.5 inch spinal needle was advanced to the inferior segment of the left L5 foramen until contact with left L5-S1 disc osteophyte. No paresthesias were elicited with needle placement and aspiration was negative for blood and CSF. Correct needle position was confirmed with approximately 1 ml contrast dye (Omnipaque 180 mg/ml) injected under real- time fluoroscopy. No evidence of vascular or intrathecal uptake was seen and there was both epidural and peripheral spread of the contrast agent. 8 mL of normal saline was injected with the goal of potentially had her dissecting the nerve root from the disc osteophyte. Then, 10 mg dexamethasone plus 1 ml containing 0.5% lidocaine was slowly injected. The needle was flushed and removed. The skin was cleansed and a sterile bandages were applied. The patient tolerated the procedure well and no complications were encountered. Following the procedure the patient's vital signs were stable. The patient was discharged home in good condition with post-procedural instructions. Time Out: Immediately prior to the procedure, the following was verbally confirmed that there is a signed consent form and that the correct patient, planned procedure, site and side are consistent with documentation and that necessary equipment and/or blood products are available prior to the start of the case. Complications: none EBL: <5 cc 53685 - Lumbar/Sacral Procedure code (CPT) selection complete Assessment & Plan Assessment & Plan (1) Lumbar radicular pain: Code(s): M54.16 - Radiculopathy, lumbar region Category: Medical Plan Patient is status post left L5-S1 selective nerve root block. Patient tolerated procedure well and was discharged home in stable condition with discharge instructions. All questions were answered. We will follow-up via telephone or in clinic to assess response to therapy. A follow-up appointment was made during today's visit. Orders: Orders FL guidance in treatment room 04/10/25 M54.16 - Radiculopathy, lumbar region Coding Level of Care Code Procedure Only Diagnoses Lumbar radicular pain M54.16 CPT Codes Transforaminal Epidural Steroid Inj - TESI 3: 00595 - Lumbar/Sacral ([id number])
[2025-04-10 12:49] VITALS: BP 100/52; PULSE 68; RESP 16; O2SAT 95
[2025-04-10 13:32] VITALS: BP 102/62; PULSE 70; RESP 16; O2SAT 96
== END 2025-04-10 13:32 | disposition home or self-care (01) ==
LOC: HO.PMCPRC 12:26
PROVIDERS: Visit Provider Internal Medicine
DX: M54.16 Radiculopathy, lumbar region (principal)
CPT/HCPCS: 64483

== ENCOUNTER 2025-04-22 10:51 | Outpatient (REF) | payer MEDICARE, SELFPAY ==
--- NOTE | ~2025-04-22 | XR_ITS ---
EXAMINATION: XR WRIST NAVICULAR RIGHT HISTORY: M25.531 - Pain in right wrist COMPARISON: Comparison is made with the prior examination dated 03/25/2025. FINDINGS: Four views of the right wrist including a scaphoid view are submitted. Osseous mineralization is normal. Again seen is a healing fracture of the distal radial metaphysis with callus formation. A fracture of the ulnar styloid is also noted. The joint spaces are preserved. There is diffuse soft tissue swelling. XR/XR wrist RT w scaphoid IMPRESSION: Healing fracture of the distal radial metaphysis. Associated ulnar styloid fracture. Electronically signed by: Bryson Garrido MD 04/22/2025 03:58 PM EDT
--- NOTE | ~2025-04-22 | XR_ITS ---
EXAMINATION: XR HAND, RIGHT CLINICAL INFORMATION: M79.641 - Pain in right hand COMPARISON: March 25, 2025 TECHNIQUE: PA, lateral, and oblique views of the right hand. FINDINGS: Traumatic deformities in the distal radius and ulna with some callus formation. Degenerative changes in the carpal bones the proximal and distal interphalangeal joints of the teaching and the first metacarpophalangeal joint. Old deformity in the deep of the distal phalanx third digit. Old traumatic deformity in the diaphysis of the third metacarpal.. XR/XR hand RT min 3V IMPRESSION: Further healing fractures distal radius and ulna Osteoarthrosis/osteoarthritis, unchanged.. Electronically signed by: Osman Power MD 04/22/2025 03:56 PM EDT
--- OUTSIDE RECORDS SUMMARY | 2025-04-23 13:49 | XMS_ITS | Clinical Summary ---
Author Organization [facility] Address [address] [place] [address] Care Team Providers Care Pipelines Manager Name Role Phone Unavailable Primary Care Provider [...]
== END 2025-04-22 10:52 | disposition home or self-care (01) ==
LOC: HO.HOSX 10:51
PROVIDERS: Visit Provider Orthopaedic Surgery
DX: S52.501D Unspecified fracture of the lower end of right radius, subsequent encounter for closed fracture with routine healing (principal); S52.601D Unspecified fracture of lower end of right ulna, subsequent encounter for closed fracture with routine healing; F10.90 Alcohol use, unspecified, uncomplicated; W19.XXXD Unspecified fall, subsequent encounter
CPT/HCPCS: 73110; 73130

== ENCOUNTER 2025-04-22 15:30 | Outpatient (AMB) | payer OTHER, SELFPAY ==
--- NOTE | 2025-04-22 15:48 | A.OFFVIS_ITS ---
Vital Signs 04/22/25 16:10 Height 5 ft 9 in Weight 212 lb BMI 31.3 Handedness Right Intake Visit Reasons: OV-Pain in right wrist/ hand with xray Intake Note: Sujit is a 59 year old right hand dominant man who presents today for a follow up visit for his right distal radius fracture and right distal ulna fracture s/p fall. Patient was placed in a short arm cast at his last visit which was removed in office today for updated x-rays. Patient is experiencing a decrease in the ROM since his wrist was in the cast but he says he did work on gentle ROM of the fingers. He expresses a release in pressure with cast removed. He has 2 lb weights at home and he questioned if he can start picking those up. He states he has some tightness in the right wrist. Allergies Penicillins (PENICILLINS) Allergy (Severe, Verified 04/22/25 16:09) HIVES trazodone Allergy (Intermediate, Verified 04/22/25 16:09) pruritus HPI HPI OV-Pain in right wrist/ hand with xray: Details: Sujit is a 59 year old right hand dominant disabled man who returns for his right distal radius fracture, distal ulna fracture, possible scaphoid waist fracture, from a fall, DOI unknown but suspected ~03/04/2025. He says he fell down his basement stairs ~1 month ago. He was seen at [facility] for a head evaluation but denies having his wrist seen as he did not initially have pain. He is a poor historian with an unclear timeline of events leading to his injuries. He says he is feeling better out of his cast. He says he does not remember when he injured himself He says he lives with his step-mother and tries to take care of her at home. [facility] Medical History Mass of right foot Acid reflux Impaired glucose tolerance Left sided sciatica Cirrhosis of liver Esophageal varices Screening for colon cancer Physical exam Lower back pain Surgical History History of esophagogastroduodenoscopy (EGD) Hx of colonoscopy History of right knee surgery History of myringotomy History of hand surgery History of left knee surgery Family History Father Cancer Mother Arthritis Cancer Sister In good health Daughter In good health Family/Other Substance use disorder Other History of hand surgery Social History Household Members: Family Household Members Other:: step mother Housing: House Alcohol intake: current Alcohol intake frequency: a few times a month Alcohol type: beer Patient Tobacco Use Status: Never used Tobacco e-Cigarette/Vaping Use: Never Used Second Hand Smoke Exposure: No service: Yes ([employer]) Current occupational status: disabled 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 Cognitive needs: No Hearing needs: No Vision needs: Yes Review of Systems Const All systems reviewed & are unremarkable except as noted in HPI and below Physical Exam Vital Signs: BMI result Body Mass Index 31.3 Const General: no acute distress and alert Orientation/consciousness: patient oriented x3 Neuro General: patient oriented x3 Extrem Other: Evaluation of Right Upper Extremity: The patient is alert, oriented, and in no acute distress Neuro: Median, Ulnar, Radial nerves motor and sensory intact and sensation is normal to the tips of all digits Vascular: Cap refill brisk ROM: Wrist ROM: Flexion: ~30 degrees Extension: ~50 degrees Pronation: Full Supination: ~60 degrees Resolved swelling Fracture site non-tender No snuffbox or scaphoid tubercle tenderness Radiographs: 3 views of the right wrist & Scaphoid view of the right wrist was taken & viewed by me today in clinic. They show a transverse metaphyseal distal radius fracture with ~5mm shortening compared to distal ulna and some evidence of interval bony healing. There is also a distal ulna fracture with some evidence of interval bony healing. He has ~2 degrees dorsal tilt seen on the lateral view. There is also a healed, old 3rd metacarpal shaft fracture. Psych Appearance: grossly normal Affect: normal affect Attitude: cooperative Assessment & Plan Assessment & Plan (1) Fracture of right distal radius: Code(s): S52.501A - Unspecified fracture of the lower end of right radius, initial encounter for closed fracture Category: Medical (2) Right distal ulnar fracture: Code(s): S52.601A - Unspecified fracture of lower end of right ulna, initial encounter for closed fracture Category: Medical (3) Alcohol use disorder: Code(s): F10.90 - Alcohol use, unspecified, uncomplicated Category: Medical Plan Assessment & Plan: 1. Right distal radius fracture, transverse From a fall, DOI unknown but suspected ~03/04/2025 First seen for this injury here on 03/25/25 2. Right distal ulna fracture, From a fall, DOI unknown but suspected ~03/04/2025 First seen for this injury here on 03/25/25 3. Right snuffbox tenderness Negative radiographs Tenderness resolved at this time I educated him about these conditions We treated him non operatively in a cast and he appears to be doing well. I am discontinuing the cast today. He was fitted for a velcro wrist splint, to be worn when out of the house for the next 4 weeks. He will remove this at home and at rest, and to work on ROM exercises I discussed activity modifications, he is to use his hand for lightweight activities only for the next 4 weeks, and slowly increase his weight limit as tolerated. They should also avoid any heavy impact activities, falls, or sports activities for the next 4 weeks He will work on gentle ROM exercises at home He says that he is not a smoker. He will follow up in 4-5 weeks, no X-rays. Consider possible OT hand therapy depending on his ROM 4. Right 3rd metacarpal fracture This appears to have healed well. Scribed for Mariely Blankenship MD by James Gomez, spanish medical interpreter, on 04/22/25 at 4:30 PM, EST. Orders: Orders XR wrist RT w scaphoid Today M25.531 - Pain in right wrist XR hand RT min 3V Today M79.641 - Pain in right hand Coding Level of Care Code Global (86772) Diagnoses Fracture of right distal radius S52.501A Right distal ulnar fracture S52.601A Alcohol use disorder F10.90
[2025-04-22 16:10] VITALS: BMI 31.3
--- OUTSIDE RECORDS SUMMARY | 2025-04-22 18:52 | XMS_ITS | Clinical Summary ---
Author Organization [facility] Address [address] [place] [address] Care Team Providers Care Returned Case Inspector Name Role Phone Unavailable Primary Care Provider [...]
== END 2025-04-22 16:45 | disposition home or self-care (01) ==
LOC: HO.HOS 15:31
PROVIDERS: Visit Provider Orthopaedic Surgery
DX: S52.501A Unspecified fracture of the lower end of right radius, initial encounter for closed fracture (principal); S52.601A Unspecified fracture of lower end of right ulna, initial encounter for closed fracture; F10.90 Alcohol use, unspecified, uncomplicated
CPT/HCPCS: 99024

== ENCOUNTER → 2025-04-22 15:34 | Outpatient (BNV) | payer OTHER, SELFPAY | PROVIDERS: Visit Provider Radiology Diagnostic Radiology | DX: S52.501D Unspecified fracture of the lower end of right radius, subsequent encounter for closed fracture with routine healing (principal); S52.611D Displaced fracture of right ulna styloid process, subsequent encounter for closed fracture with routine healing; M19.031 Primary osteoarthritis, right wrist | CPT/HCPCS: 73110; 73130 ==

== ENCOUNTER 2025-04-28 10:38 | Outpatient (AMB) | payer MEDICARE, SELFPAY ==
--- NOTE | 2025-04-28 10:41 | MHC.OFFVIS ---
Vital Signs 04/28/25 10:43 Height 5 ft 9 in Weight 225 lb BMI 33.2 BP 148/52 H Blood Pressure Location Lt brachial Position Sitting Respiration 16 Pulse 92 Pulse Source Pulse Oximeter Pulse Oximetry (%) 94 Oxygen Delivery Method Room Air Intake Visit Reasons: S/P Left L5 SNRB Digital Sales Representative Required: No Allergies Penicillins (PENICILLINS) Allergy (Severe, Verified 04/28/25 10:44) HIVES trazodone Allergy (Intermediate, Verified 04/28/25 10:44) pruritus Medication List - Last Reconciled 04/28/25 by Mell Allred LPN pantoprazole 20 mg PO DAILY HPI HPI S/P Left L5 SNRB: Details: History of Present Illness The patient is a 59-year-old male presenting with chronic back pain. The patient reports that the last injection, a selective nerve block at L5-S1, did not provide relief. The injection was performed three weeks ago. The patient has been managing the pain with a heating pad at night and cold packs during the day, which provides some relief. The patient also has a wrist ligament injury sustained in January, which has not fully healed. The cast was removed, and the patient is currently using a brace to support the wrist while the ligaments heal. Exercises are performed regularly to aid recovery. Additionally, the patient is scheduled for a liver evaluation with a CAT scan as part of preventative care. Pain Description - Onset: Chronic - Quality: Persistent, not relieved by recent injection - Location: Lower back - Exacerbating factors: Ineffective injection technique - Relieving factors: Heating pad at night, cold packs during the day Physical Exam - Appears afebrile. - Alert and oriented. - Mood and affect appropriate. - Leaning forward for comfortable position. Pain Management - Affect: Not explicitly discussed - Analgesia: Previous injection ineffective, planning for another injection in June - Adverse Effects: None reported - Activities of Daily Living: Pain managed with heating pad and cold packs, affecting sleep position - Aberrant Drug Related Behaviors: None reported [facility] Medical History Mass of right foot Acid reflux Impaired glucose tolerance Left sided sciatica Cirrhosis of liver Esophageal varices Screening for colon cancer Physical exam Lower back pain Surgical History History of esophagogastroduodenoscopy (EGD) Hx of colonoscopy History of right knee surgery History of myringotomy History of hand surgery History of left knee surgery Family History Father Cancer Mother Arthritis Cancer Sister In good health Daughter In good health Family/Other Substance use disorder Other History of hand surgery Social History Household Members: Family Household Members Other:: step mother Housing: House Alcohol intake: current Alcohol intake frequency: a few times a month Alcohol type: beer Patient Tobacco Use Status: Never used Tobacco e-Cigarette/Vaping Use: Never Used Second Hand Smoke Exposure: No service: Yes ([employer]) Current occupational status: disabled 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 1. Chronic Back Pain - Plan to repeat selective nerve block injection in June, aiming for lower pole of the L5 foramen technique based on previous successful placement. - Continue using heating pad at night and cold packs during the day for symptomatic relief. 2. Wrist Ligament Injury - Continue wearing brace and performing exercises to support ligament healing. Discussion Notes We discussed the plan to repeat the selective nerve block injection in June, focusing on an improved technique based on previous successful placements. The patient was advised to continue using a heating pad and cold packs for pain management. We also reviewed the need for a CAT scan to evaluate liver health as part of preventative care. Patient Instructions - Continue using a heating pad at night and cold packs during the day for back pain relief. - Wear wrist brace and perform exercises as instructed to aid ligament healing. - Attend scheduled CAT scan for liver evaluation. Coding Level of Care Code Est Pt Level 3 (15950) Diagnoses Lumbar radicular pain M54.16
[2025-04-28 10:43] VITALS: BP 148/52; PULSE 92; RESP 16; O2SAT 94; BMI 33.2
--- OUTSIDE RECORDS SUMMARY | 2025-04-28 13:04 | XMS_ITS | Clinical Summary ---
Author Organization [facility] Address [address] [place] [address] Care Team Providers Care Accelerator Systems Director Name Role Phone Unavailable Primary Care Provider [...]
== END 2025-04-28 11:19 | disposition home or self-care (01) ==
PROVIDERS: PCP Internal Medicine; Visit Provider Internal Medicine
DX: M54.16 Radiculopathy, lumbar region (principal)
CPT/HCPCS: 99213

== ENCOUNTER → 2025-04-28 10:38 | Outpatient (BNVA) | payer MEDICARE, SELFPAY | PROVIDERS: PCP Internal Medicine; Visit Provider Internal Medicine | DX: M54.16 Radiculopathy, lumbar region (principal) | CPT/HCPCS: 99212 ==

== ENCOUNTER 2025-05-27 10:44 | Outpatient (AMB) | payer OTHER, SELFPAY ==
--- NOTE | 2025-05-27 11:15 | A.OFFVIS_ITS ---
Vital Signs 05/27/25 11:16 Height 5 ft 9 in Weight 225 lb BMI 33.2 Intake Visit Reasons: OV-ROM check/ Pain in right wrist Intake Note: Sujit is a 59 year old right hand dominant man who presents today for a follow up visit for his right distal radius fracture and right distal ulna fracture s/p fall. At his last visit he was fitted for a velcro wrist brace. He is aware he needs to work on ROM exercises, he is to use his hand for lightweight activities only for the next 4 weeks, and slowly increase his weight limit as tolerated. Today patient states he is working on his ROM. He still feels little pain and tightness when making a fist. Allergies Penicillins (PENICILLINS) Allergy (Severe, Verified 05/27/25 11:19) HIVES trazodone Allergy (Intermediate, Verified 05/27/25 11:19) pruritus HPI HPI OV-ROM check/ Pain in right wrist: Details: Sujit is a 60 year old right hand dominant disabled man who returns for his right distal radius fracture, distal ulna fracture, possible scaphoid waist fracture, from a fall, DOI unknown but suspected ~03/04/2025. He says he fell down his basement stairs. He was seen at [facility] for a head evaluation but denies having his wrist seen as he did not initially have pain. He is a poor historian with an unclear timeline of events leading to his injuries. He says he is feeling much better overall. He says he does not remember when he injured himself He says he lives with his step-mother and tries to take care of her at home. He is currently unemployed and on disability. [facility] Medical History Mass of right foot Acid reflux Impaired glucose tolerance Left sided sciatica Cirrhosis of liver Esophageal varices Screening for colon cancer Physical exam Lower back pain Surgical History History of esophagogastroduodenoscopy (EGD) Hx of colonoscopy History of right knee surgery History of myringotomy History of hand surgery History of left knee surgery Family History Father Cancer Mother Arthritis Cancer Sister In good health Daughter In good health Family/Other Substance use disorder Other History of hand surgery Social History Household Members: Family Household Members Other:: step mother Housing: House Alcohol intake: current Alcohol intake frequency: a few times a month Alcohol type: beer Patient Tobacco Use Status: Never used Tobacco e-Cigarette/Vaping Use: Never Used Second Hand Smoke Exposure: No service: Yes ([employer]) Current occupational status: disabled 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 Cognitive needs: No Hearing needs: No Vision needs: Yes Physical Exam Vital Signs: BMI result Body Mass Index 33.2 Const General: no acute distress and alert Orientation/consciousness: patient oriented x3 Neuro General: patient oriented x3 Extrem Other: Evaluation of Right Upper Extremity: The patient is alert, oriented, and in no acute distress Neuro: Median, Ulnar, Radial nerves motor and sensory intact and sensation is normal to the tips of all digits Vascular: Cap refill brisk ROM: Wrist ROM: Flexion: ~40 degrees Extension: ~50 degrees Pronation: Full Supination: ~65 degrees Resolved swelling Fracture site non-tender No snuffbox or scaphoid tubercle tenderness Psych Appearance: grossly normal Affect: normal affect Attitude: cooperative Assessment & Plan Assessment & Plan (1) Fracture of right distal radius: Code(s): S52.501A - Unspecified fracture of the lower end of right radius, initial encounter for closed fracture Category: Medical (2) Right distal ulnar fracture: Code(s): S52.601A - Unspecified fracture of lower end of right ulna, initial encounter for closed fracture Category: Medical (3) Alcohol use disorder: Code(s): F10.90 - Alcohol use, unspecified, uncomplicated Category: Medical Plan Assessment & Plan: 1. Right distal radius fracture, transverse From a fall, DOI unknown but suspected ~03/04/2025 First seen for this injury here on 03/25/25 2. Right distal ulna fracture, From a fall, DOI unknown but suspected ~03/04/2025 First seen for this injury here on 03/25/25 I educated him about these conditions We treated him non operatively in a cast and he appears to be doing well. I am discontinuing his splint today I discussed activity modifications, he is to use his hand for lightweight activities only for the next 4 weeks, and slowly increase his weight limit as tolerated. They should also avoid any heavy impact activities, falls, or sports activities for the next 4 weeks He will work on ROM exercises at home I offered OT hand therapy, but he declined at this time He says that he is not a smoker. He will follow up prn. He may contact the clinic if he would like a referral to OT hand therapy. 3. Right snuffbox tenderness Resolved 4. Right 3rd metacarpal fracture This appears to have healed well. Scribed for Mariely Blankenship MD by James Gomez, medical records receptionist, on 05/27/25 at 11:25 AM, EST. Coding Level of Care Code Global (44205) Diagnoses Fracture of right distal radius S52.501A Right distal ulnar fracture S52.601A Alcohol use disorder F10.90
[2025-05-27 11:16] VITALS: BMI 33.2
--- OUTSIDE RECORDS SUMMARY | 2025-05-27 12:58 | XMS_ITS | Clinical Summary ---
Author Organization [facility] Address [address] [place] [address] Care Team Providers Care College Coach Name Role Phone Unavailable Primary Care Provider [...] of 2) 2013 COVID-19 Vaccine ( - 2024-2 6 season) 2025 Influenza (#1) 2025 RSV (1 [...]
== END 2025-05-27 12:05 | disposition home or self-care (01) ==
LOC: HO.HOS 10:45
PROVIDERS: Visit Provider Orthopaedic Surgery
DX: S52.501A Unspecified fracture of the lower end of right radius, initial encounter for closed fracture (principal); S52.601A Unspecified fracture of lower end of right ulna, initial encounter for closed fracture; F10.90 Alcohol use, unspecified, uncomplicated
CPT/HCPCS: 99024

== ENCOUNTER 2025-05-28 07:23 | Outpatient (REF) | payer OTHER, SELFPAY ==
--- NOTE | ~2025-05-28 | CT_ITS ---
EXAMINATION: CT ABDOMEN WITHOUT AND WITH CONTRAST CLINICAL INFORMATION: K 70.30. 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 COMPARISON: July 20, 2024. TECHNIQUE: Contiguous axial thin section helical images of the abdomen were performed before and after the administration of 85 mL of Omnipaque 350 intravenous contrast. The data set was reformatted in the coronal and sagittal planes and reviewed on an independent workstation. No reported immediate complications This CT examination was performed using dose optimization techniques as appropriate, variously including the following: *Automated exposure control *Adjustment of mA and/or kV according to patient size (this includes techniques or standardized protocols for targeted exams where dose is matched to indication/reason for exam; i.e. extremities or head) *Use of iterative reconstruction technique. DLP: 1243 mGy centimeter. FINDINGS: LUNG BASES: No acute airspace disease. LIVER, GALLBLADDER, AND BILIARY TREE: Liver measures 14 cm. Nodular surface. No enhancing lesion during the arterial phase nor portal venous phase.. Gallbladder is packed with multiple small cholelithiasis. No distention. No pericholecystic fluid collection or gallbladder wall thickening. No intrahepatic or extrahepatic biliary ductal dilatation. PANCREAS: No focal mass. No peripancreatic fluid collection. No main pancreatic ductal dilatation. SPLEEN: 15 cm. No focal mass. ADRENAL GLANDS AND KIDNEYS: No nodular lesions in the adrenal glands. Subtle nephrocalcinosis, bilaterally. No hydronephrosis. No renal mass. Normal enhancement pattern of the renal cortex. No dilatation of the ureters.. BOWEL LOOPS: No intestinal obstruction pattern. No ascites. No pneumoperitoneum. No pneumatosis intestinalis. Appendix is normal. LYMPH NODES: Mild prominent mesenteric and retroperitoneum. VASCULAR: No IV contrast enhancement within the main portal vein or its main branches. Prominent tortuous vessels extending from the confluent superior mesenteric vein/splenic vein into the left main renal vein and gastroesophageal vessels/varices. There is IV contrast enhancement of the inferior vena cava. I do not see IV contrast enhancement of the suprahepatic veins. The umbilical vein is not patent or prominent. Calcified plaques in the coronary arteries. Calcified plaques in the abdominal aorta wall and its main mesenteric arteries right greater than left main renal arteries and iliac arteries. No aneurysm or dissection, abdominal aorta. BONES: Multilevel thoracolumbar spondylosis. Grade 1 retrolisthesis L1 to. No acute fracture. Syndesmophyte formation and preservation of the intervertebral disc height in the lower thoracic spine involving T6 T10 segment. Sclerosis and the sacroiliac joints not fully included in the [id number]. 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 Cirrhosis without ascites. Cholelithiasis. Medullary nephrocalcinosis. Consider hyperparathyroidism versus renal tubular acidosis versus medullary sponge kidney among other etiologies. Coronary artery disease and atherosclerosis disease. Fleischner guidelines were followed. Electronically signed by: Osman Power MD 05/28/2025 09:01 AM EDT
--- OUTSIDE RECORDS SUMMARY | 2025-05-28 07:25 | XMS_ITS | Clinical Summary ---
Author Organization [facility] Address [address] [place] [address] Care Team Providers Care Cast Associate Name Role Phone Unavailable Primary Care Provider [...]
[2025-05-28] MEDS: iohexoL 350 MG/ML 100 ML INFUS..BTL IV (08:36)
[2025-05-28 09:51] LABS: Creatinine POC 0.8 mg/dL (0.5-1.4); GFR POC > 60
== END 2025-05-28 07:24 | disposition home or self-care (01) ==
LOC: HO.CT 07:23
PROVIDERS: PCP Internal Medicine; Visit Provider Internal Medicine
DX: K70.30 Alcoholic cirrhosis of liver without ascites (principal)
CPT/HCPCS: 74170; 82565; Q9967

== ENCOUNTER → 2025-05-28 07:25 | Outpatient (BNV) | payer OTHER, SELFPAY | PROVIDERS: PCP Internal Medicine; Visit Provider Radiology Diagnostic Radiology | DX: K74.60 Unspecified cirrhosis of liver (principal); K80.20 Calculus of gallbladder without cholecystitis without obstruction; E83.59 Other disorders of calcium metabolism; I25.10 Atherosclerotic heart disease of native coronary artery without angina pectoris | CPT/HCPCS: 74170 ==